=== PATIENT | male | born 1945 | race Two or more races ===

== ENCOUNTER 2017-04-13 11:52 | Emergency (ER) | payer MEDICARE ==
--- NOTE | 2017-04-13 12:32 | ED ---
Recheck HPI - General Chief Complaint: Recheck/Abnormal Lab/Rx Stated Complaint: Flu, hypertensive Time Seen by Provider: 04/13/17 12:22 Source: patient, RN notes reviewed Mode of arrival: ambulatory Limitations: no limitations - History of Present Illness Initial Comments: This is a 71-year-old male who presents with complaints of not feeling well for the past week she's had elevated blood pressure he is been feeling weak and shaky he sees Dr. yanez contact with him on several occasions for blood pressure med changes. His blood pressure is urinating around 190/93 ROM is much lower he also was on by systolic which was stopped. Yesterday due to a low heart rate up in the 40s. They complain some chills feeling cold feeling hoarse he was recently exposed to the flu from a granddaughter. He has had rhinorrhea slight cough. MD Complaint: other - Related Data Home Medications Medication Instructions Recorded Confirmed Cyclobenzaprine [Flexeril] 5 mg PO DAILY PRN 04/13/17 04/13/17 Furosemide [Lasix] 20 mg PO DAILY 04/13/17 04/13/17 Gemfibrozil [Lopid] 600 mg PO AC-BRKFST 04/13/17 04/13/17 Losartan Potassium 100 mg PO DAILY 04/13/17 04/13/17 Simvastatin [Zocor] 40 mg PO HS 04/13/17 04/13/17 Tamsulosin HCl [Flomax] 0.4 mg PO DAILY 04/13/17 04/13/17 amLODIPine [Norvasc] 5 mg PO BID 04/13/17 04/13/17 hydrALAZINE HCL [Apresoline] 50 mg PO TID 04/13/17 04/13/17 Previous Rx's Medication Instructions Recorded Azithromycin [Zithromax Z-pack] 250 mg PO DIRECTED #6 tab 04/13/17 Allergies Allergy/AdvReac Type Severity Reaction Status Date / Time No Known Allergies Allergy Verified 04/13/17 12:45 Review of Systems ROS Statement: Those systems with pertinent positive or pertinent negative responses have been documented in the HPI. ROS Other: All systems not noted in ROS Statement are negative. Past Medical History Past Medical History: Coronary Artery Disease (CAD), Hyperlipidemia, Hypertension History of Any Multi-Drug Resistant Organisms: None Reported Past Surgical History: Orthopedic Surgery Additional Past Surgical History / Comment(s): Left knee replacement Past Psychological History: No Psychological Hx Reported Smoking Status: Never smoker Past Alcohol Use History: Occasional Past Drug Use History: None Reported General Exam - General Exam Comments Initial Comments: This is a well-developed well-nourished awake alert oriented times 3 male Limitations: no limitations General appearance: alert, in no apparent distress Head exam: Present: atraumatic, normocephalic, normal inspection Eye exam: Present: normal appearance, PERRL, EOMI. Absent: scleral icterus, conjunctival injection, periorbital swelling ENT exam: Present: normal exam, mucous membranes moist Neck exam: Present: normal inspection. Absent: tenderness, meningismus, lymphadenopathy Respiratory exam: Present: normal lung sounds bilaterally. Absent: respiratory distress, wheezes, rales, rhonchi, stridor Cardiovascular Exam: Present: regular rate, normal rhythm, normal heart sounds. Absent: systolic murmur, diastolic murmur, rubs, gallop, clicks GI/Abdominal exam: Present: soft, normal bowel sounds. Absent: distended, tenderness, guarding, rebound, rigid Extremities exam: Present: normal inspection, full ROM, normal capillary refill. Absent: tenderness, pedal edema, joint swelling, calf tenderness Back exam: Present: normal inspection Neurological exam: Present: alert, oriented X3, CN II-XII intact Psychiatric exam: Present: normal affect, normal mood Skin exam: Present: warm, dry, intact, normal color. Absent: rash Course Vital Signs 04/13/17 04/13/17 04/13/17 12:05 13:30 14:30 Temperature 97.0 F L Pulse Rate 71 58 L 56 L Respiratory 20 16 18 Rate Blood Pressure 130/102 188/90 181/93 O2 Sat by Pulse 97 100 96 Oximetry Medical Decision Making - Medical Decision Making Patient's blood pressure is improved I did discuss the findings with him the patient does demonstrate evidence of an infectious process with an elevated white count he will be placed on Zithromax Z-Garrett is a palpable his doctor return when necessary - Lab Data Result diagrams: 04/13/17 12:39 04/13/17 12:39 Lab Results 04/13/17 04/13/17 04/13/17 Range/Units 12:39 12:39 12:39 WBC 11.2 H (3.8-10.6) k/uL RBC 5.21 (4.30-5.90) m/uL Hgb 16.7 (13.0-17.5) gm/dL Hct 47.7 (39.0-53.0) % MCV 91.6 (80.0-100.0) fL MCH 32.1 (25.0-35.0) pg MCHC 35.0 (31.0-37.0) g/dL RDW 13.2 (11.5-15.5) % Plt Count 280 (150-450) k/uL Neutrophils % 73 % Lymphocytes % 17 % Monocytes % 5 % Eosinophils % 2 % Basophils % 1 % Neutrophils # 8.1 H (1.3-7.7) k/uL Lymphocytes # 2.0 (1.0-4.8) k/uL Monocytes # 0.6 (0-1.0) k/uL Eosinophils # 0.3 (0-0.7) k/uL Basophils # 0.1 (0-0.2) k/uL Sodium 143 (137-145) mmol/L Potassium 3.8 (3.5-5.1) mmol/L Chloride 103 (98-107) mmol/L Carbon Dioxide 25 (22-30) mmol/L Anion Gap 15 mmol/L BUN 14 (9-20) mg/dL Creatinine 0.88 (0.66-1.25) mg/dL Est GFR (MDRD) Af Amer >60 (>60 ml/min/1.73 sqM) Est GFR (MDRD) Non-Af >60 (>60 ml/min/1.73 sqM) Glucose 145 H (74-99) mg/dL Calcium 10.1 (8.4-10.2) mg/dL Magnesium 1.8 (1.6-2.3) mg/dL Total Bilirubin 0.8 (0.2-1.3) mg/dL AST 19 (17-59) U/L ALT 28 (21-72) U/L Alkaline Phosphatase 87 (38-126) U/L Total Creatine Kinase 78 (55-170) U/L CK-MB (CK-2) 0.9 (0.0-2.4) ng/mL CK-MB (CK-2) Rel Index 1.2 Total Protein 7.8 (6.3-8.2) g/dL Albumin 4.7 (3.5-5.0) g/dL Influenza Type A RNA (Not Detectd) Influenza Type B (PCR) (Not Detectd) 04/13/17 Range/Units 12:39 WBC (3.8-10.6) k/uL RBC (4.30-5.90) m/uL Hgb (13.0-17.5) gm/dL Hct (39.0-53.0) % MCV (80.0-100.0) fL MCH (25.0-35.0) pg MCHC (31.0-37.0) g/dL RDW (11.5-15.5) % Plt Count (150-450) k/uL Neutrophils % % Lymphocytes % % Monocytes % % Eosinophils % % Basophils % % Neutrophils # (1.3-7.7) k/uL Lymphocytes # (1.0-4.8) k/uL Monocytes # (0-1.0) k/uL Eosinophils # (0-0.7) k/uL Basophils # (0-0.2) k/uL Sodium (137-145) mmol/L Potassium (3.5-5.1) mmol/L Chloride (98-107) mmol/L Carbon Dioxide (22-30) mmol/L Anion Gap mmol/L BUN (9-20) mg/dL Creatinine (0.66-1.25) mg/dL Est GFR (MDRD) Af Amer (>60 ml/min/1.73 sqM) Est GFR (MDRD) Non-Af (>60 ml/min/1.73 sqM) Glucose (74-99) mg/dL Calcium (8.4-10.2) mg/dL Magnesium (1.6-2.3) mg/dL Total Bilirubin (0.2-1.3) mg/dL AST (17-59) U/L ALT (21-72) U/L Alkaline Phosphatase (38-126) U/L Total Creatine Kinase (55-170) U/L CK-MB (CK-2) (0.0-2.4) ng/mL CK-MB (CK-2) Rel Index Total Protein (6.3-8.2) g/dL Albumin (3.5-5.0) g/dL Influenza Type A RNA Not Detected (Not Detectd) Influenza Type B (PCR) Not Detected (Not Detectd) - Radiology Data Radiology results: report reviewed (I did review the imaging and reports no acute findings.), image reviewed Disposition Clinical Impression: Hypertension, Leukocytosis Disposition: HOME SELF-CARE Condition: Good Instructions: Hypertension (ED), Leukocytosis (ED) Additional Instructions: Follow-up with her doctor in 2-3 days. Continue with your current blood pressure medications as directed. Prescriptions: Azithromycin [Zithromax Z-pack] 250 mg PO DIRECTED #6 tab Referrals: Nonstaff,Physician [Primary Care Provider] - 1-2 days
[2017-04-13 12:50] LABS: Basophils # (A) 0.1 k/uL (0-0.2); Basophils % (A) 1 %; Eosinophils # (A) 0.3 k/uL (0-0.7); Eosinophils % (A) 2 %; HCT 47.7 % (39.0-53.0); HGB 16.7 gm/dL (13.0-17.5); Lymphocytes % (A) 17 %; MCH 32.1 pg (25.0-35.0); MCV 91.6 fL (80.0-100.0); Mean Platelet Volume 7.8; Monocytes # (A) 0.6 k/uL (0-1.0); Monocytes % (A) 5 %; Neutrophils # (A) 8.1 k/uL (1.3-7.7); Neutrophils % (A) 73 %; Platelet Count 280 k/uL (150-450); RBC 5.21 m/uL (4.30-5.90); RDW 13.2 % (11.5-15.5); WBC 11.2 k/uL (3.8-10.6)
[2017-04-13 13:03] LABS: ALT 28 U/L (21-72); AST 19 U/L (17-59); Albumin 4.7 g/dL (3.5-5.0); Alkaline Phosphatase 87 U/L (38-126); Anion Gap 15 mmol/L; Blood Urea Nitrogen 14 mg/dL (9-20); Calcium 10.1 mg/dL (8.4-10.2); Carbon Dioxide 25 mmol/L (22-30); Chloride 103 mmol/L (98-107); Glucose 145 mg/dL (74-99); Magnesium 1.8 mg/dL (1.6-2.3); Potassium 3.8 mmol/L (3.5-5.1); Sodium 143 mmol/L (137-145); Total Bilirubin 0.8 mg/dL (0.2-1.3); Total Protein 7.8 g/dL (6.3-8.2)
--- NOTE | 2017-04-13 13:15 | XR ---
EXAMINATION TYPE: XR chest 2V DATE OF EXAM: 04/13/2017 HISTORY: cough. REFERENCE: None. FINDINGS: The lungs are clear. Pleural space are clear. The heart is upper limits of normal in size.. IMPRESSION: BORDERLINE CARDIOMEGALY.
[2017-04-13 13:28] LABS: Creatine Kinase MB 0.9 ng/mL (0.0-2.4)
[2017-04-13] MEDS ORDERED: hydrALAZINE HCL 20 MG/ML 1 ML VIAL IVP STA (14:06)
[2017-04-13 15:26] VITALS: BP 165/81; PULSE 68; RESP 16; TEMP 97.7
== END 2017-04-13 15:26 | disposition home or self-care (01) ==
LOC: EC 11:52
DX: I10 Essential (primary) hypertension (principal); D72.829 Elevated white blood cell count, unspecified; R05 Cough; J34.89 Other specified disorders of nose and nasal sinuses; I25.10 Atherosclerotic heart disease of native coronary artery without angina pectoris; E78.5 Hyperlipidemia, unspecified; Z79.899 Other long term (current) drug therapy
CPT/HCPCS: 99284; 96374; 36415; 93005; 80053; 82550; 82553; 83735; 85025; 87040; 87502; 71046; J0360

== ENCOUNTER 2023-01-15 23:41 | Inpatient (IN) | payer MEDICARE ==
[2023-01-16] MEDS ORDERED: MAG HYDROX/AL HYDROX/SIMETH 30 ML, HYOSCYAMINE ELIXIR 10 ML, LIDOCAINE VISCOUS 2% 10 ML PO STA ×3 (00:18)
[2023-01-16] MEDS ORDERED: FAMOTIDINE 20 MG/2 ML VIAL IV STA (00:18)
[2023-01-16] MEDS ORDERED: KETOROLAC 15 MG/ML 1 ML VIAL IVP STA (00:18)
[2023-01-16] MEDS ORDERED: ONDANSETRON 4 MG/2 ML VIAL IVP STA (00:19)
--- NOTE | 2023-01-16 00:31 | ED ---
General Adult HPI - General Source: patient, EMS, RN notes reviewed Mode of arrival: EMS Limitations: no limitations <Kassidy Helton - Last Filed: 01/16/23 03:41> <Carol Asif - Last Filed: 01/16/23 07:47> - General Chief complaint: Abdominal Pain Stated complaint: Abd Pain, N/V Time Seen by Provider: 01/16/23 00:02 - History of Present Illness Initial comments: 77-year-old male with past medical history significant for left knee arthroplasty presents the emergency department via EMS with chief complaint of epigastric pain. Patient reports Epigastric pain that started approximately 7 PM. It does not radiate anywhere else. He reports that he has had a post operation recovery last 6 days however have an increased epigastric pain last night and today. He has not taken anything for his symptoms. Patient reports that he is on antibiotics and Dr., empty stomach. He denies any known fevers, cough, chest pain, palpitations, shortness of breath. No patient does report that he is taking extra strength Tylenol and MAP AP, estimating approximately 4000mg daily since his procedure (Kassidy Helton) - Related Data Home Medications Medication Instructions Recorded Confirmed Cyclobenzaprine [Flexeril] 5 mg PO DAILY PRN 04/13/17 01/16/23 Furosemide [Lasix] 20 mg PO DAILY 04/13/17 01/16/23 Tamsulosin HCl [Flomax] 0.4 mg PO HS 04/13/17 01/16/23 gemfibroziL [Lopid] 600 mg PO AC-BRKFST 04/13/17 01/16/23 hydrALAZINE HCL [Apresoline] 50 mg PO TID 04/13/17 01/16/23 Acetaminophen Tab [Tylenol Tab] 1,000 mg PO Q8H PRN 01/16/23 01/16/23 Aspirin EC [Ecotrin Low Dose] 81 mg PO BID 01/16/23 01/16/23 Doxycycline [Vibramycin] 50 mg PO BID PRN 01/16/23 01/16/23 Losartan [Cozaar] 50 mg PO DAILY 01/16/23 01/16/23 Omeprazole [PriLOSEC] 40 mg PO DAILY 01/16/23 01/16/23 Sildenafil Citrate [Viagra] 50 mg PO DAILY PRN 01/16/23 01/16/23 amLODIPine [Norvasc] 10 mg PO DAILY 01/16/23 01/16/23 metroNIDAZOLE 1% GEL [Metrogel 1%] 1 applic TOPICAL DAILY 01/16/23 01/16/23 Allergies Allergy/AdvReac Type Severity Reaction Status Date / Time No Known Allergies Allergy Verified 01/16/23 07:37 Review of Systems ROS Other: All systems not noted in ROS Statement are negative. <Kassidy Helton - Last Filed: 01/16/23 03:41> ROS Other: All systems not noted in ROS Statement are negative. <Carol Asif - Last Filed: 01/16/23 07:47> ROS Statement: Those systems with pertinent positive or pertinent negative responses have been documented in the HPI. Past Medical History Past Medical History: Coronary Artery Disease (CAD), Hyperlipidemia, Hypertension History of Any Multi-Drug Resistant Organisms: None Reported Past Surgical History: Orthopedic Surgery Additional Past Surgical History / Comment(s): Left knee replacement Past Psychological History: No Psychological Hx Reported Past Alcohol Use History: Occasional Past Drug Use History: None Reported <Kassidy Helton - Last Filed: 01/16/23 03:41> General Exam Limitations: no limitations <Kassidy Helton - Last Filed: 01/16/23 03:41> - General Exam Comments Initial Comments: General: Alert, in no acute distress, is obese Head: atraumatic normocephalic. Eyes PERRL, EOMI intact, mucous membranes moist Respiratory: Lungs clear to auscultation bilaterally Cardiovascular: Heart rate regular rate and rhythm Abdominal: Soft without guarding or rebound, mild epigastric tenderness Extremities: Normal inspection with full range of motion and normal capillary refill Neuroogic: alert and oriented 3, CN II-XII intact, able to ambulate with steady gait Skin: warm dry and intact with normal color (Kassidy Helton) Course <Kassidy Helton - Last Filed: 01/16/23 03:41> Vital Signs 01/15/23 01/16/23 01/16/23 23:47 01:30 03:03 Temperature 97.0 F L Pulse Rate 71 87 90 Respiratory 20 18 18 Rate Blood Pressure 187/84 166/91 171/90 O2 Sat by Pulse 97 93 L 93 L Oximetry 11/15/23 04:48 Temperature Pulse Rate 90 Respiratory 18 Rate Blood Pressure 184/94 O2 Sat by Pulse 96 Oximetry - Reevaluation(s) Reevaluation #1: 01/16/23 01:11 patient reevaluated and updated on laboratory results. Agreeable with the plan for additional CT imaging. (Kassidy Helton) Reevaluation #2: 01/16/23 03:45 patient reevaluated. (Kassidy Helton) Reevaluation #3: 01/16/23 03:42 Case is signed out to Dr. Asif pending CT results (Kassidy Helton) EKG Findings - EKG Comments: EKG Findings:: I interpreted the following: EKG performed at 23:57 rate 70 bpm normal sinus rhythm OR interval 180, QRS scientologist 119, QT/QTc 420/441 <Kassidy Helton - Last Filed: 01/16/23 03:41> Medical Decision Making - Lab Data Result diagrams: 01/16/23 00:20 01/16/23 00:20 <Kassidy Helton - Last Filed: 01/16/23 03:41> - Lab Data Result diagrams: 01/16/23 00:20 01/16/23 00:20 <Carol Asif - Last Filed: 01/16/23 07:47> - Medical Decision Making Was pt. sent in by a medical professional or institution (, PA, DRUG CLERK, urgent care, hospital, or prison...) When possible be specific @ -[No] Did you speak to anyone other than the patient for history (EMS, parent, family, police, friend...)? What history was obtained from this source @ -EMS, Did you review nursing and triage notes (agree or disagree)? Why? @ -[I reviewed and agree with nursing and triage notes] Were old charts reviewed (outside hosp., previous admission, EMS record, old EKG, old radiological studies, urgent care reports/EKG's, prison records)? Report findings @ -[No old charts were reviewed] Differential Diagnosis (chest pain, altered mental status, abdominal pain women, abdominal pain men, vaginal bleeding, weakness, fever, dyspnea, syncope, headache, dizziness, GI bleed, back pain, seizure, CVA, palpatations, mental health, musculoskeletal)? @ -[not applicable] EKG interpreted by me (3pts min.). @ -[As above] X-rays interpreted by me (1pt min.). @ -Chest x-ray does not reveal any intra pleural process or focal consolidation CT interpreted by me (1pt min.). @ -[None done] U/S interpreted by me (1pt. min.). @ -[None done] What testing was considered but not performed or refused? (CT, X-rays, U/S, labs)? Why? @ -[None] What meds were considered but not given or refused? Why? @ -[None] Did you discuss the management of the patient with other professionals (duane preciado i.e. , PA, DRUG CLERK, lab, RT, psych nurse, manager social responsibility, trading floor operator, teacher, geological technical officer, family independence case manager)? Give summary @ -[No] Was smoking cessation discussed for >3mins.? @ -[No] Was critical care preformed (if so, how long)? @ -[No] Were there social determinants of health that impacted care today? How? (Homelessness, low income, unemployed, alcoholism, drug addiction, transp ortation, low edu. Level, literacy, decrease access to med. care, intermediate, rehab)? @ -[No] Was there de-escalation of care discussed even if they declined (Discuss DNR or withdrawal of care, Hospice)? DNR status @ -[No] What co-morbidities impacted this encounter? (DM, HTN, Smoking, COPD, CAD, Cancer, CVA, ARF, Chemo, Hep., AIDS, mental health diagnosis, sleep apnea, morbid obesity)? @ -[None] Was patient admitted / discharged? Hospital course, mention meds given and route, prescriptions, significant lab abnormalities, going to OR and other pertinent info. @ Disposition pending. This is a 77-year-old male who presents to the emergency department with epigastric pain. Patient had a thorough history and physical exam performed while in the ED. Physical exam is essentially unremarkable. Heart rate regular rate and rhythm, auscultation bilaterally abdomen soft and nontender. Patient had laboratory studies which revealed: WBCs 10.8, hemoglobin 13.7, platelets 328 quality assurance representative studies unremarkable sodium 136, potassium 2.6 BUN 15, creatinine 0.91 total bilirubin 2.9, AST 285, ALP 240 initial troponin negative. Chest x-ray negative. Patient was given a GI cocktail, Toradol, Pepcid, Zofran, 1 L IV fluids for symptomatic improvement. Patient will be signed out to Dr. Asif pending acetaminophen value and CT results. (Kassidy Helton) Was patient admitted / discharged? Hospital course, mention meds given and route, prescriptions, significant lab abnormalities, going to OR and other pertinent info. @ -Patient signed out to me from Kassidy. CT results demonstrate cho lelithiasis with 2 stones within the common bile duct which is dilated. Spoke with Dr. Moreland who felt that the patient could be admitted to our facility. Recommended medicine admission with him and Dr. Ortiz to consult. I spoke with the patient about this. He is pain-free at this time and agreeable to admission. I spoke with Dr. palomares for the admission Undiagnosed new problem with uncertain prognosis? @ -Yes Drug Therapy requiring intensive monitoring for toxicity (Heparin, Nitro, Insulin, Cardizem)? @ -No Were any procedures done? @ -No Diagnosis/symptom? @ -Acute epigastric abdominal pain, acute cholelithiasis, acute choledocholit hiasis Acute, or Chronic, or Acute on Chronic? @ -Acute Uncomplicated (without systemic symptoms) or Complicated (systemic symptoms)? @ -Complicated Side effects of treatment? @ -No Exacerbation, Progression, or Severe Exacerbation? @ -No Poses a threat to life or bodily function? How? (Chest pain, USA, ME, pneumonia, PE, COPD, DKA, ARF, appy, cholecystitis, CVA, Diverticulitis, Homicidal, Suicidal, threat to staff... and all critical care pts) @ -No (Carol Asif) - Lab Data Lab Results 01/16/23 01/16/23 01/16/23 Range/Units 00:20 00:20 00:20 WBC 10.8 H (3.8-10.6) k/uL RBC 4.18 L (4.30-5.90) m/uL Hgb 13.7 (13.0-17.5) gm/dL Hct 39.8 (39.0-53.0) % MCV 95.1 (80.0-100.0) fL MCH 32.8 (25.0-35.0) pg MCHC 34.5 (31.0-37.0) g/dL RDW 12.7 (11.5-15.5) % Plt Count 328 (150-450) k/uL MPV 8.7 Neutrophils % 81 % Lymphocytes % 10 % Monocytes % 6 % Eosinophils % 2 % Basophils % 0 % Neutrophils # 8.8 H (1.3-7.7) k/uL Lymphocytes # 1.1 (1.0-4.8) k/uL Monocytes # 0.6 (0-1.0) k/uL Eosinophils # 0.2 (0-0.7) k/uL Basophils # 0.0 (0-0.2) k/uL PT 10.1 (10.0-12.5) sec INR 0.9 (<1.2) APTT 24.2 (22.0-30.0) sec Sodium 136 L (137-145) mmol/L Potassium 3.6 (3.5-5.1) mmol/L Chloride 102 (98-107) mmol/L Carbon Dioxide 21 L (22-30) mmol/L Anion Gap 13 mmol/L BUN 15 (9-20) mg/dL Creatinine 0.91 (0.66-1.25) mg/dL Est GFR (CKD-EPI)AfAm >90 (>60 ml/min/1.73 sqM) Est GFR (CKD-EPI)NonAf 82 (>60 ml/min/1.73 sqM) Glucose 155 H (74-99) mg/dL Plasma Lactic Acid Bart (0.7-2.0) mmol/L Calcium 9.0 (8.4-10.2) mg/dL Total Bilirubin 2.9 H (0.2-1.3) mg/dL AST 285 H (17-59) U/L ALT 240 H (4-49) U/L Alkaline Phosphatase 301 H (38-126) U/L Troponin I (0.000-0.034) ng/mL Total Protein 6.5 (6.3-8.2) g/dL Albumin 3.7 (3.5-5.0) g/dL Acetaminophen <10.0 ug/mL Influenza Type A (PCR) (Not Detectd) Influenza Type B (PCR) (Not Detectd) RSV (PCR) (Not Detectd) SARS-CoV-2 (PCR) (Not Detectd) 01/16/23 01/16/23 01/16/23 Range/Units 00:20 00:20 00:20 WBC (3.8-10.6) k/uL RBC (4.30-5.90) m/uL Hgb (13.0-17.5) gm/dL Hct (39.0-53.0) % MCV (80.0-100.0) fL MCH (25.0-35.0) pg MCHC (31.0-37.0) g/dL RDW (11.5-15.5) % Plt Count (150-450) k/uL MPV Neutrophils % % Lymphocytes % % Monocytes % % Eosinophils % % Basophils % % Neutrophils # (1.3-7.7) k/uL Lymphocytes # (1.0-4.8) k/uL Monocytes # (0-1.0) k/uL Eosinophils # (0-0.7) k/uL Basophils # (0-0.2) k/uL PT (10.0-12.5) sec INR (<1.2) APTT (22.0-30.0) sec Sodium (137-145) mmol/L Potassium (3.5-5.1) mmol/L Chloride (98-107) mmol/L Carbon Dioxide (22-30) mmol/L Anion Gap mmol/L BUN (9-20) mg/dL Creatinine (0.66-1.25) mg/dL Est GFR (CKD-EPI)AfAm (>60 ml/min/1.73 sqM) Est GFR (CKD-EPI)NonAf (>60 ml/min/1.73 sqM) Glucose (74-99) mg/dL Plasma Lactic Acid Bart 1.7 (0.7-2.0) mmol/L Calcium (8.4-10.2) mg/dL Total Bilirubin (0.2-1.3) mg/dL AST (17-59) U/L ALT (4-49) U/L Alkaline Phosphatase (38-126) U/L Troponin I <0.012 (0.000-0.034) ng/mL Total Protein (6.3-8.2) g/dL Albumin (3.5-5.0) g/dL Acetaminophen ug/mL Influenza Type A (PCR) Not Detected (Not Detectd) Influenza Type B (PCR) Not Detected (Not Detectd) RSV (PCR) Not Detected (Not Detectd) SARS-CoV-2 (PCR) Not Detected (Not Detectd) Disposition <Kassidy Helton - Last Filed: 01/16/23 03:41> Is patient prescribed a controlled substance at d/c from ED?: No Time of Disposition: 05:37 Decision to Admit Reason: Admit from EC Decision Date: 01/16/23 Decision Time: 05:37 <Carol Asif - Last Filed: 01/16/23 07:47> Clinical Impression: Epigastric pain, Transaminitis, Choledocholithiasis, Cholelithiasis Disposition: ADMITTED IP TO THIS HOSP Condition: Serious
[2023-01-16 00:39] LABS: Basophils % (A) 0 %; Eosinophils # (A) 0.2 k/uL (0-0.7); Eosinophils % (A) 2 %; HCT 39.8 % (39.0-53.0); HGB 13.7 gm/dL (13.0-17.5); Lymphocytes # (A) 1.1 k/uL (1.0-4.8); Lymphocytes % (A) 10 %; MCH 32.8 pg (25.0-35.0); MCHC 34.5 g/dL (31.0-37.0); MCV 95.1 fL (80.0-100.0); Mean Platelet Volume 8.7; Monocytes # (A) 0.6 k/uL (0-1.0); Monocytes % (A) 6 %; Neutrophils # (A) 8.8 k/uL (1.3-7.7); Neutrophils % (A) 81 %; Platelet Count 328 k/uL (150-450); RBC 4.18 m/uL (4.30-5.90); RDW 12.7 % (11.5-15.5); WBC 10.8 k/uL (3.8-10.6)
[2023-01-16 00:43] LABS: INR 0.9 (<1.2); Partial Thromboplastin Time 24.2 sec (22.0-30.0); Prothrombin Time 10.1 sec (10.0-12.5)
[2023-01-16 00:46] LABS: ALT 240 U/L (4-49); AST 285 U/L (17-59); African American GFR (CKD) >90 (>60 ml/min/1.73 sqM); Albumin 3.7 g/dL (3.5-5.0); Alkaline Phosphatase 301 U/L (38-126); Anion Gap 13 mmol/L; Blood Urea Nitrogen 15 mg/dL (9-20); Carbon Dioxide 21 mmol/L (22-30); Chloride 102 mmol/L (98-107); Glucose 155 mg/dL (74-99); Non-African American GFR(CKD) 82 (>60 ml/min/1.73 sqM); Potassium 3.6 mmol/L (3.5-5.1); Sodium 136 mmol/L (137-145); Total Bilirubin 2.9 mg/dL (0.2-1.3); Total Protein 6.5 g/dL (6.3-8.2)
--- NOTE | 2023-01-16 02:30 | XR ---
EXAM: XR Chest, 2 Views CLINICAL HISTORY: epigastric pain TECHNIQUE: Frontal and lateral views of the chest. COMPARISON: April 13, 2017 FINDINGS: Lungs: Unremarkable. No infiltration, atelectasis or mass density. Pleural space: Unremarkable. No pneumothorax. No pleural fluid. Heart: Mild cardiomegaly. Mediastinum: Unremarkable. Bones/joints: Unremarkable. No acute abnormalities. IMPRESSION: No acute findings in the chest.
--- NOTE | 2023-01-16 04:21 | CT ---
EXAM: CT Abdomen and Pelvis With Intravenous Contrast CLINICAL HISTORY: abdominal pain TECHNIQUE: Axial computed tomography images of the abdomen and pelvis with intravenous contrast. CTDI is 39.7 mGy and DLP is 1996.2 mGy-cm. This CT exam was performed using one or more of the following dose reduction techniques: automated exposure control, adjustment of the mA and/or kV according to patient size, and/or use of iterative reconstruction technique. COMPARISON: No relevant prior studies available. FINDINGS: Lung bases: Mild infiltration in the right lower lobe. Mediastinum: Small hiatus hernia. ABDOMEN: Liver: Unremarkable. No mass. No intrahepatic bile duct dilatation. Gallbladder and bile ducts: Multiple gallstones. There is no gallbladder wall thickening or surrounding edema or fluid. There appear to be 2 small stones in the distal common bile duct. The common bile duct is upper limits of normal for age at approximately 7-8 mm. Pancreas: Unremarkable. No mass. No ductal dilation. Spleen: Unremarkable. No splenomegaly. Adrenals: Unremarkable. No mass. Kidneys and ureters: Unremarkable. No solid mass. No hydronephrosis. Stomach and bowel: Diverticulosis without diverticulitis. No obstruction. PELVIS: Appendix: No findings to suggest acute appendicitis. Bladder: Unremarkable. No mass. Reproductive: Unremarkable as visualized. ABDOMEN and PELVIS: Intraperitoneal space: Unremarkable. No free air. No significant fluid collection. Bones/joints: No acute fracture. No dislocation. Soft tissues: Unremarkable. Vasculature: Unremarkable. No abdominal aortic aneurysm. Lymph nodes: Unremarkable. No enlarged lymph nodes. IMPRESSION: Gallstones. 2 small stones in the distal common bile duct. Mild right lower lobe infiltrates.
[2023-01-16 04:58] LABS: Acetaminophen <10.0 ug/mL
[2023-01-16] MEDS ORDERED: NALOXONE 0.4 MG/ML 1 ML VIAL IV PRN (05:37)
[2023-01-16] MEDS: SODIUM CHLORIDE 0.9% 1,000 ML IV SCH ×2 (08:34→19:55)
[2023-01-16] MEDS ORDERED: ACETAMINOPHEN TAB 500 MG TAB PO PRN (10:15)
[2023-01-16] MEDS ORDERED: hydrALAZINE HCL 20 MG/ML 1 ML VIAL IVP PRN (10:17)
[2023-01-16] MEDS: amLODIPine 10 MG TAB PO SCH (12:17)
[2023-01-16] MEDS: LOSARTAN 50 MG TAB PO SCH (12:17)
[2023-01-16] MEDS: hydrALAZINE HCL 50 MG TAB PO SCH ×3 (12:17→20:02)
--- NOTE | 2023-01-16 12:27 | P.CONS ---
History of Present Illness - Reason for Consult Consult date: 01/16/23 Acute choledocholithiasis Requesting physician: Carol Asif - Chief Complaint Abdominal pain - History of Present Illness This is a pleasant 77-year-old male who presented to the emergency department yesterday evening with complaints of right upper quadrant and epigastric pain. States pain started 2 days ago however it only lasted about 2 hours that evening and then again yesterday he ate dinner and then following that around 7 PM the pain returned and was sharp and continued causing nausea and vomiting. Patient's past medical history includes recent left knee surgery done 5-6 days ago, coronary artery disease, hyperlipidemia and hypertension. This morning he states abdominal pain has improved. He states he has no pain and no further nausea or vomiting. On admission he was noted to have elevated liver enzymes and had a CT of the abdomen and pelvis concerning for multiple gallstones as well as CBD stone. Gastroenterology was consulted for choledochollithiasis. Again currently he denies any abdominal pain, nausea or vomiting. He denies shortness of breath or chest pain, no body aches, fevers or chills. Labs WBC 10.8 hemoglobin 13.7 hematocrit 39 platelet count 328,000 INR 0.9 sodium 136 potassium 3.6 BUN 15 creatinine 0.9 glucose 155 total bilirubin 2.9 AST 285 AST 240 alkaline phosphatase 301 Review of Systems REVIEW OF SYSTEMS: CARDIOPULMONARY: No chest pain or shortness of breath. Gastrointestinal: Reported epigastric and right upper quadrant pain associated with nausea and vomiting yesterday now resolved. No hematemesis, coffee-ground emesis. No rectal bleeding, or melena. GENITOURINARY: No dysuria or hematuria. MUSCULOSKELETAL: Reports left knee replacement 5 days ago, limited mobility. SKIN: No rashes. No jaundice. ENDOCRINE: No chills, fevers. No excessive weight gain or loss. No polydipsia or polyuria. PSYCHIATRIC: Unremarkable. NEUROLOGY: No change in mental status. Denies dizziness, headache. ENT: Vision unremarkable. CONSTITUTIONAL: No recent weight loss. No fever, chills, night sweats. Past Medical History Past Medical History: Coronary Artery Disease (CAD), Hyperlipidemia, Hypertension History of Any Multi-Drug Resistant Organisms: None Reported Past Surgical History: Orthopedic Surgery Additional Past Surgical History / Comment(s): Left knee replacement Past Psychological History: No Psychological Hx Reported Past Alcohol Use History: Occasional Past Drug Use History: None Reported Medications and Allergies Home Medications Medication Instructions Recorded Confirmed Type Cyclobenzaprine [Flexeril] 5 mg PO DAILY PRN 04/13/17 01/16/23 History Furosemide [Lasix] 20 mg PO DAILY 04/13/17 01/16/23 History Tamsulosin HCl [Flomax] 0.4 mg PO HS 04/13/17 01/16/23 History gemfibroziL [Lopid] 600 mg PO AC-BRKFST 04/13/17 01/16/23 History hydrALAZINE HCL [Apresoline] 50 mg PO TID 04/13/17 01/16/23 History Acetaminophen Tab [Tylenol Tab] 1,000 mg PO Q8H PRN 01/16/23 01/16/23 History Aspirin EC [Ecotrin Low Dose] 81 mg PO BID 01/16/23 01/16/23 History Doxycycline [Vibramycin] 50 mg PO BID PRN 01/16/23 01/16/23 History Losartan [Cozaar] 50 mg PO DAILY 01/16/23 01/16/23 History Omeprazole [PriLOSEC] 40 mg PO DAILY 01/16/23 01/16/23 History Sildenafil Citrate [Viagra] 50 mg PO DAILY PRN 01/16/23 01/16/23 History amLODIPine [Norvasc] 10 mg PO DAILY 01/16/23 01/16/23 History metroNIDAZOLE 1% GEL [Metrogel 1%] 1 applic TOPICAL DAILY 01/16/23 01/16/23 History Allergies Allergy/AdvReac Type Severity Reaction Status Date / Time No Known Allergies Allergy Verified 01/16/23 07:37 Physical Exam Vitals: Vital Signs Temp Pulse Resp BP Pulse Ox 01/16/23 04:48 90 18 184/94 96 01/16/23 03:03 90 18 171/90 93 L 01/16/23 01:30 87 18 166/91 93 L 01/15/23 23:47 97.0 F L 71 20 187/84 97 Intake and Output 01/15/23 01/16/23 01/16/23 22:59 06:59 14:59 Other: Weight 117.934 kg General appearance: The patient is alert, oriented, appears in no acute distress. HET: Head is normocephalic and atraumatic. Conjunctiva pink. Sclera anicteric. Neck: Supple without lymphadenopathy. Trachea midline. Heart: Regular. Lungs: Equal expansion, normal respiratory effort. Abdomen: Soft, nontender, nondistended with bowel sounds. No guarding or rigidity. Skin: No rashes. No jaundice. Extremities: Normal skin color and turgor. No pedal edema. Neurological: No focal deficits. Alert and oriented x3. Results CBC & Chem 7: 01/16/23 00:20 01/16/23 00:20 Labs: Abnormal Lab Results - Last 24 Hours (Table) 01/16/23 01/16/23 Range/Units 00:20 00:20 WBC 10.8 H (3.8-10.6) k/uL RBC 4.18 L (4.30-5.90) m/uL Neutrophils # 8.8 H (1.3-7.7) k/uL Sodium 136 L (137-145) mmol/L Carbon Dioxide 21 L (22-30) mmol/L Glucose 155 H (74-99) mg/dL Total Bilirubin 2.9 H (0.2-1.3) mg/dL AST 285 H (17-59) U/L ALT 240 H (4-49) U/L Alkaline Phosphatase 301 H (38-126) U/L Comments: CT abdomen and pelvis with IV contrast reports gallstones. 2 small stones in the distal common bile duct. Mild right lower lobe infiltrates. Assessment and Plan (1) Choledocholithiasis Narrative/Plan: This 77-year-old male presenting with right upper quadrant and epigastric pain associated with nausea and vomiting for 2 days duration had elevated LFTs consistent with cholestatic pattern as well as CT of the abdomen and pelvis reporting multiple gallstones as well as concern for 2 small stones in the distal common bile duct. Patient had recent knee surgery denies any anticoagulation however does take daily low-dose aspirin. We'll hold aspirin and plan for ERCP tomorrow. Procedure discussed with patient including risks and benefits and he has agreeable to proceed. Current Visit: Yes Status: Acute Code(s): K80.50 - CALCULUS OF BILE DUCT W/O CHOLANGITIS OR CHOLECYST W/O OBST SNOMED Code(s): 943008444 (2) Cholelithiasis Narrative/Plan: General surgery following Current Visit: Yes Status: Acute Code(s): K80.20 - CALCULUS OF GALLBLADDER W/O CHOLECYSTITIS W/O OBSTRUCTION SNOMED Code(s): 626084784 (3) Transaminitis Current Visit: Yes Status: Acute Code(s): R74.01 - ELEVATION OF LEVELS OF LIVER TRANSAMINASE LEVELS SNOMED Code(s): 573769218 Plan: 1. Continue symptomatic supportive care 2. Pain medication as needed 3. Antiemetics as needed 4. Protonix 40 mg daily for GI prophylaxis 5. Plan for ERCP tomorrow 6. Clear liquid diet, nothing by mouth after midnight 7. Indomethacin one hour prior to ERCP 8. Levaquin one hour prior to ERCP 9. Continue with recommendations from general surgery Thank you for this consultation, we will continue to follow. Dr. Paty Ortiz I agree with the dictator's note, documented as a scribe by Maria Isabel Rajput.
[2023-01-16] MEDS ORDERED: CYCLOBENZAPRINE 5 MG TAB PO PRN (13:17)
[2023-01-16] MEDS: PANTOPRAZOLE 40 MG/10 ML VIAL IVP SCH ×2 (14:24→20:02)
[2023-01-16] MEDS: FUROSEMIDE 20 MG TAB PO SCH (14:24)
[2023-01-16] MEDS: HEPARIN SODIUM,PORCINE 5,000 UNIT/ML 1 ML VIAL SQ SCH ×2 (14:25→20:02)
--- NOTE | 2023-01-16 14:52 | P.GSCN ---
History of Present Illness Consult date: 01/16/23 History of present illness: CHIEF COMPLAINT: Abdominal pain HISTORY OF PRESENT ILLNESS: This is a 77-year-old male who presented to the hospital with complaints of epigastric and right upper quadrant abdominal pain that started yesterday evening. Patient reports pain started after eating a roast beef for dinner. He denies any nausea or vomiting. Denies any fever c hills or sweats. Denies any prior abdominal surgeries. Denies being on any blood thinners. Computed tomography scan abdomen had shown gallstones and 2 small stones in the distal common bile duct. Patient does have elevated liver enzymes and total bilirubin. Patient seen by GI service and is scheduled for ERCP tomorrow. PAST MEDICAL HISTORY: Coronary Artery Disease (CAD), Hyperlipidemia, Hypertension PAST SURGICAL HISTORY: Left knee replacement MEDICATIONS: See below ALLERGIES: See below SOCIAL HISTORY: No illicit drug use. REVIEW OF SYSTEMS: CONSTITUTIONAL: Denies fever or chills. HEENT: Denies blurred vision, vision changes, or eye pain. Denies hemoptysis CARDIOVASCULAR: Denies chest pain or pressure. RESPIRATORY: No shortness of breath. GASTROINTESTINAL: See HPI for pertinent findings HEMATOLOGIC: Denies bleeding disorders. GENITOURINARY: Denies any blood in urine or increased urinary frequency. SKIN: Denies pruitis. Denies rash. PHYSICAL EXAM: VITAL SIGNS: Reviewed GENERAL: Well-developed in no acute distress. HEENT: No sclera icterus. Extraocular movements grossly intact. Moist buccal mucosa. Head is atraumatic, normocephalic. No nasal drainage. ABDOMEN: Soft. Nondistended. Right upper quadrant tenderness with palpation NEUROLOGIC: Alert and oriented. Cranial nerves II through XII grossly intact. LABORATORY DATA: WBC 10.8 Hgb 13.7 platelets 328 Sodium 136 potassium 3.6 creatinine 0.91 Total bilirubin 2.9 AST 285 ALT 240 alk phos 301 Tylenol Less than 10 Influenza, RSV and Covid not detected IMAGING: Computed tomography scan abdomen and pelvis reports gallstones. 2 small stones in the distal common bile duct. Mild right lower lobe infiltrates. ASSESSMENT: 1. Choledocholithiasis 2. Right upper quadrant abdominal pain PLAN: -Patient scheduled for ERCP with GI service tomorrow -We'll plan for laparoscopic cholecystectomy on Saturday with Dr. Moreland -Start clear liquid diet -Continue IV fluids -Continue pain management -Continue antiemetics Physician Spinning Lathe Operator Hydraulic note has been reviewed by physician. Signing provider agrees with the documented findings, assessment, and plan of care. Past Medical History Past Medical History: Coronary Artery Disease (CAD), Hyperlipidemia, Hypertensi on History of Any Multi-Drug Resistant Organisms: None Reported Past Surgical History: Orthopedic Surgery Additional Past Surgical History / Comment(s): Left knee replacement Past Psychological History: No Psychological Hx Reported Past Alcohol Use History: Occasional Past Drug Use History: None Reported Medications and Allergies Home Medications Medication Instructions Recorded Confirmed Type Cyclobenzaprine [Flexeril] 5 mg PO DAILY PRN 04/13/17 01/16/23 History Furosemide [Lasix] 20 mg PO DAILY 04/13/17 01/16/23 History Tamsulosin HCl [Flomax] 0.4 mg PO HS 04/13/17 01/16/23 History gemfibroziL [Lopid] 600 mg PO AC-BRKFST 04/13/17 01/16/23 History hydrALAZINE HCL [Apresoline] 50 mg PO TID 04/13/17 01/16/23 History Acetaminophen Tab [Tylenol Tab] 1,000 mg PO Q8H PRN 01/16/23 01/16/23 History Aspirin EC [Ecotrin Low Dose] 81 mg PO BID 01/16/23 01/16/23 History Doxycycline [Vibramycin] 50 mg PO BID PRN 01/16/23 01/16/23 History Losartan [Cozaar] 50 mg PO DAILY 01/16/23 01/16/23 History Omeprazole [PriLOSEC] 40 mg PO DAILY 01/16/23 01/16/23 History Sildenafil Citrate [Viagra] 50 mg PO DAILY PRN 01/16/23 01/16/23 History amLODIPine [Norvasc] 10 mg PO DAILY 01/16/23 01/16/23 History cefaDROXiL [Duricef] 500 mg PO Q12HR 01/16/23 01/16/23 History metroNIDAZOLE 1% GEL [Metrogel 1%] 1 applic TOPICAL DAILY 01/16/23 01/16/23 History Allergies Allergy/AdvReac Type Severity Reaction Status Date / Time No Known Allergies Allergy Verified 01/16/23 07:37 Surgical - Exam Vital Signs Temp Pulse Resp BP Pulse Ox 97.0 F L 71 20 187/84 97 01/15/23:47 01/15/23 23:47 01/15/23 23:47 01/15/23 23:47 01/15/23 23:47 Results - Labs 01/16/23 00:20 01/16/23 00:20 Abnormal Lab Results - Last 24 Hours (Table) 01/16/23 01/16/23 Range/Units 00:20 00:20 WBC 10.8 H (3.8-10.6) k/uL RBC 4.18 L (4.30-5.90) m/uL Neutrophils # 8.8 H (1.3-7.7) k/uL Sodium 136 L (137-145) mmol/L Carbon Dioxide 21 L (22-30) mmol/L Glucose 155 H (74-99) mg/dL Total Bilirubin 2.9 H (0.2-1.3) mg/dL AST 285 H (17-59) U/L ALT 240 H (4-49) U/L Alkaline Phosphatase 301 H (38-126) U/L Diabetes panel 01/16/23 Range/Units 00:20 Sodium 136 L (137-145) mmol/L Potassium 3.6 (3.5-5.1) mmol/L Chloride 102 (98-107) mmol/L Carbon Dioxide 21 L (22-30) mmol/L BUN 15 (9-20) mg/dL Creatinine 0.91 (0.66-1.25) mg/dL Glucose 155 H (74-99) mg/dL Calcium 9.0 (8.4-10.2) mg/dL AST 285 H (17-59) U/L ALT 240 H (4-49) U/L Alkaline Phosphatase 301 H (38-126) U/L Total Protein 6.5 (6.3-8.2) g/dL Albumin 3.7 (3.5-5.0) g/dL Calcium panel 01/16/23 Range/Units 00:20 Calcium 9.0 (8.4-10.2) mg/dL Albumin 3.7 (3.5-5.0) g/dL Pituitary panel 01/16/23 Range/Units 00:20 Sodium 136 L (137-145) mmol/L Potassium 3.6 (3.5-5.1) mmol/L Chloride 102 (98-107) mmol/L Carbon Dioxide 21 L (22-30) mmol/L BUN 15 (9-20) mg/dL Creatinine 0.91 (0.66-1.25) mg/dL Glucose 155 H (74-99) mg/dL Calcium 9.0 (8.4-10.2) mg/dL Adrenal panel 01/16/23 Range/Units 00:20 Sodium 136 L (137-145) mmol/L Potassium 3.6 (3.5-5.1) mmol/L Chloride 102 (98-107) mmol/L Carbon Dioxide 21 L (22-30) mmol/L BUN 15 (9-20) mg/dL Creatinine 0.91 (0.66-1.25) mg/dL Glucose 155 H (74-99) mg/dL Calcium 9.0 (8.4-10.2) mg/dL Total Bilirubin 2.9 H (0.2-1.3) mg/dL AST 285 H (17-59) U/L ALT 240 H (4-49) U/L Alkaline Phosphatase 301 H (38-126) U/L Total Protein 6.5 (6.3-8.2) g/dL Albumin 3.7 (3.5-5.0) g/dL
[2023-01-16] MEDS: TAMSULOSIN 0.4 MG CAP.ER.24H PO SCH (20:02)
[2023-01-16] MEDS: MORPHINE SULFATE 4 MG/ML SYRINGE IV PRN (21:06)
[2023-01-16] MEDS: ONDANSETRON 4 MG/2 ML VIAL IVP PRN (21:06)
--- NOTE | 2023-01-17 01:10 | HP ---
HISTORY AND PHYSICAL CHIEF COMPLAINTS: Abdominal pain, nausea, vomiting. HISTORY OF PRESENT ILLNESS: This is a 77-year-old gentleman with a past medical history of multiple medical problems including CAD, had a recent knee surgery from elsewhere on the left side. The patient is now complaining of abdominal pain, which is felt in the right side epigastrium with some nausea. The patient had elevated LFTs and also had stone in the distal CBD. The patient being closely monitored by the Surgery. GI evaluation is in progress. There is no history of any fever, rigors, or chills at this time. PAST MEDICAL HISTORY: Reviewed include recent left knee surgery, CAD, hypertension, hyperlipidemia. HOME MEDICATIONS: Duricef. Dose and rest of medications noted. ALLERGIES: None. FAMILY HISTORY: No history of heart disease or strokes in the family. SOCIAL HISTORY: Occasional alcohol. REVIEW OF SYSTEMS: A 14-point review is negative except as mentioned earlier. PHYSICAL EXAMINATION: VITAL SIGNS: Pulse is 90, blood pressure 184/94, respirations 18. HEENT: Conjunctivae normal. NECK: No JVD. CARDIOVASCULAR: S1, S2. RESPIRATIONS: Breath sounds diminished at the bases. ABDOMEN: Soft, mild diffuse tenderness in the right upper quadrant. No guarding. No rigidity. No mass palpable. No ascites. LEGS: Status post left knee arthroplasty. NERVOUS SYSTEM: Nonfocal. LABORATORY DATA: WBC 10.8, sodium 136. LFTs are noted. ASSESSMENT: 1. Acute cholelithiasis with CBD stones and mild obstructive jaundice. 2. History of recent left total knee arthroplasty. 3. Hypertension. 4. Hyperlipidemia. 5. Coronary artery disease. 6. Hyponatremia, mild. RECOMMENDATIONS AND DISCUSSION: This is a 77-year-old gentleman, who presented with multiple complex medical issues. We will monitor the patient closely. Continue the current medications. Broad-spectrum IV antibiotics. Otherwise, I would recommend monitor blood pressure closely. p.r.n. medications. Resume the home medications. Surgery and Gastroenterology evaluations. I would also recommend orthopedic evaluation. DVT prophylaxis. Prognosis guarded. Further recommendations to follow. See orders for further details. MMODL / IJN: [id number] /
[2023-01-17] MEDS: MORPHINE SULFATE 4 MG/ML SYRINGE IV PRN ×2 (01:32→19:52)
--- NOTE | 2023-01-17 05:16 | P.CONS ---
History of Present Illness - Reason for Consult Consult date: 01/16/23 Recent left knee arthroplasty on antibiotics antibiotic recommendation Requesting physician: Erica Donovan - Chief Complaint Right upper quadrant abdominal pain and vomiting x 1 day - History of Present Illness Patient is a 77-year-old male with a past medical his significant for hypertension hyperlipidemia coronary artery disease recently did have a left knee replacement presenting to the hospital for evaluation of right upper quadrant and epigastric abdominal pain patient symptoms started mostly sharp pain to the epigastric and right upper quadrant area severe in intensity with an episode of vomiting patient mention his symptoms initially resolved however did came back for the patient presented to hospital patient denies high-grade fever denies any URI symptoms no chest pain or shortness of breath or cough no diarrhea or constipation denies any pain to the left knee area patient presented to the hospital was afebrile and no fever has been recorded subsequently he did have a white count of 10.8 with a left shift creatinine was 0.91 liver exams are elevated influenza RSV and COVID testings were negative patient did have a chest x-ray no acute findings in the chest abdominal pelvis CT 2 small stones in the distal common bile duct mild right lower lobe infiltrate no gallbladder wall thickening or surrounding edema or fluid patient was admitted to the hospital infectious disease was consulted because of his recent left knee arthroplasty and on antibiotics recommendation apparently the patient is on oral doxycycline postsurgery however the patient mention there was no evidence of any infection to the left knee but it was replaced and has been on prophylaxis doxycycline Review of Systems Positive point and negatives has been mentioned in the HPI, complete review of systems was performed and all other systems are negative Past Medical History Past Medical History: Coronary Artery Disease (CAD), Hyperlipidemia, Hypertension History of Any Multi-Drug Resistant Organisms: None Reported Past Surgical History: Orthopedic Surgery Additional Past Surgical History / Comment(s): Left knee replacement Past Anesthesia/Blood Transfusion Reactions: No Reported Reaction Past Psychological History: No Psychological Hx Reported Past Alcohol Use History: Occasional Past Drug Use History: None Reported Medications and Allergies Home Medications Medication Instructions Recorded Confirmed Type Cyclobenzaprine [Flexeril] 5 mg PO DAILY PRN 04/13/17 01/16/23 History Furosemide [Lasix] 20 mg PO DAILY 04/13/17 01/16/23 History Tamsulosin HCl [Flomax] 0.4 mg PO HS 04/13/17 01/16/23 History gemfibroziL [Lopid] 600 mg PO AC-BRKFST 04/13/17 01/16/23 History hydrALAZINE HCL [Apresoline] 50 mg PO TID 04/13/17 01/16/23 History Acetaminophen Tab [Tylenol] 1,000 mg PO Q8H PRN 01/16/23 01/16/23 History Aspirin EC [Ecotrin Low Dose] 81 mg PO BID 01/16/23 01/16/23 History Doxycycline [Vibramycin] 50 mg PO BID PRN 01/16/23 01/16/23 History Losartan [Cozaar] 50 mg PO DAILY 01/16/23 01/16/23 History Omeprazole [PriLOSEC] 40 mg PO DAILY 01/16/23 01/16/23 History Sildenafil Citrate [Viagra] 50 mg PO DAILY PRN 01/16/23 01/16/23 History amLODIPine [Norvasc] 10 mg PO DAILY 01/16/23 01/16/23 History metroNIDAZOLE 1% GEL [Metrogel 1%] 1 applic TOPICAL DAILY 01/16/23 01/16/23 History Ibuprofen [Motrin] 600 mg PO Q8HR PRN #30 tab 01/18/23 Rx oxyCODONE HCL [OxyIR] 5 mg PO Q6H PRN 3 Days #12 tab 01/18/23 Rx Amoxic-Pot Clav 875-125Mg 1 tab PO Q12HR 7 Days #14 tab 01/21/23 Rx [Augmentin 875-125] Pantoprazole Sodium [Protonix] 40 mg PO DAILY #30 tab 01/21/23 Rx Simethicone 40 mg/0.6 ml Drops 40 mg PO QID PRN #5 ml 01/21/23 Rx [Mylicon Drops] Allergies Allergy/AdvReac Type Severity Reaction Status Date / Time No Known Allergies Allergy Verified 01/18/23 10:21 Physical Exam Vitals: Vital Signs Temp Pulse Pulse Resp BP BP Pulse Ox 01/16/23 15:57 97.4 F L 74 18 173/81 95 01/16/23 13:33 68 16 150/77 96 01/16/23 10:03 97.9 F 68 16 150/77 96 01/16/23 07:45 80 18 151/82 95 01/16/23 04:48 90 18 184/94 96 01/16/23 03:03 90 18 171/90 93 L 01/16/23 01:30 87 18 166/91 93 L 01/15/23 23:47 97.0 F L 71 20 187/84 97 Intake and Output 01/16/23 01/16/23 01/16/23 06:59 14:59 22:59 Other: Weight 117.934 kg 117.934 kg GENERAL DESCRIPTION: An elderly male lying in bed, no distress. No tachypnea or accessory muscle of respiration use. HEENT: Shows Pallor , no scleral icterus. Oral mucous membrane is dry. No pharyngeal erythema or thrush NECK: Trachea central, no thyromegaly. LUNGS: Unlabored breathing. Clear to auscultation anteriorly. No wheeze or crackle. HEART: S1, S2, regular rate and rhythm. No loud murmur ABDOMEN: Soft, right upper quadrant tenderness EXTREMITIES: Left knee currently with minimal swelling no redness no drainage. SKIN: No rash, no masses palpable. NEUROLOGICAL: The patient is awake, alert, oriented x3, mood and affect normal. Results CBC & Chem 7: 01/21/23 06:37 01/21/23 06:37 Labs: Abnormal Lab Results - Last 24 Hours (Table) 01/16/23 01/16/23 Range/Units 00:20 00:20 WBC 10.8 H (3.8-10.6) k/uL RBC 4.18 L (4.30-5.90) m/uL Neutrophils # 8.8 H (1.3-7.7) k/uL Sodium 136 L (137-145) mmol/L Carbon Dioxide 21 L (22-30) mmol/L Glucose 155 H (74-99) mg/dL Total Bilirubin 2.9 H (0.2-1.3) mg/dL AST 285 H (17-59) U/L ALT 240 H (4-49) U/L Alkaline Phosphatase 301 H (38-126) U/L Assessment and Plan (1) Choledocholithiasis Current Visit: Yes Status: Acute Code(s): K80.50 - CALCULUS OF BILE DUCT W/O CHOLANGITIS OR CHOLECYST W/O OBST SNOMED Code(s): 826255526 (2) Transaminitis Current Visit: Yes Status: Acute Code(s): R74.01 - ELEVATION OF LEVELS OF LIVER TRANSAMINASE LEVELS SNOMED Code(s): 787394926 Plan: 1patient presented to hospital with abdominal pain and has been diagnosed with a CBD stones and obstructive jaundice white count is mildly elevated with left shift and concern for possible cholangitis usually associated with gram-negative bacteremia we will need to treat aggressively as the patient did have recent left knee replacement and avoiding bacteremia to prevent seeding of his left prosthetic knee 2-patient has been on outpatient doxycycline prophylaxis per his surgeon however per patient no evidence of any infection at the time of surgery 3-we will start the patient on Zosyn 3.75 g every 8 hours and continue with his oral doxycycline prophylaxis 4-await ERCP in the a.m. We will follow on clinical condition and cultures to further adjust medication if needed Thank you for this consultation we will follow the patient along with you Dictation was produced using Sequence dictation software. please excuse any grammatical, word or spelling errors. Time with Patient: Greater than 30
[2023-01-17] MEDS: PIPERACILLIN-TAZOBACTAM 3.375 GM in SODIUM CHLORIDE 0.9% 100 ML IVPB SCH ×3 (08:48→17:26)
[2023-01-17] MEDS: hydrALAZINE HCL 50 MG TAB PO SCH ×3 (08:49→22:01)
[2023-01-17] MEDS: LOSARTAN 50 MG TAB PO SCH (08:49)
[2023-01-17] MEDS: PANTOPRAZOLE 40 MG/10 ML VIAL IVP SCH ×2 (08:49→22:01)
[2023-01-17] MEDS: amLODIPine 10 MG TAB PO SCH (08:50)
[2023-01-17] MEDS: FUROSEMIDE 20 MG TAB PO SCH (08:50)
[2023-01-17] MEDS: SODIUM CHLORIDE 0.9% 1,000 ML IV SCH ×2 (08:58→22:01)
[2023-01-17] MEDS: DOXYCYCLINE 50 MG CAP PO SCH ×2 (10:47→22:00)
[2023-01-17] MEDS: HEPARIN SODIUM,PORCINE 5,000 UNIT/ML 1 ML VIAL SQ SCH ×2 (11:34→22:01)
[2023-01-17] MEDS ORDERED: LEVOFLOXACIN 500MG-D5W PMX 500 MG in DEXTROSE/WATER 1 100ML.BAG IVPB SCH (12:00)
[2023-01-17] MEDS ORDERED: INDOMETHACIN 100 MG SUPPOSITORY RECTAL ONE (12:00)
--- NOTE | 2023-01-17 12:01 | P.PN ---
Subjective Progress Note Date: 01/17/23 CHIEF COMPLAINT: Choledocholithiasis HISTORY OF PRESENT ILLNESS: Patient reports having pain during the night with nausea located in the right upper quadrant. He did require IV pain medication. Pain is better this morning. He is scheduled for ERCP today. Afebrile. Labs for today pending PHYSICAL EXAM: VITAL SIGNS: Reviewed. GENERAL: Well-developed in no acute distress. ABDOMEN: Soft. Nondistended. Nontender. NEUROLOGIC: Alert and oriented. Cranial nerves II through XII grossly intact. ASSESSMENT: 1. Choledocholithiasis 2. Right upper quadrant abdominal pain PLAN: -Patient scheduled for ERCP today with GI service -Plan for laparoscopic cholecystectomy with Dr. Moreland tomorrow, 01/18/2023 -Nothing by mouth after midnight -Continue supportive care -Repeat labs in a.m. Physician Wood Boat Builder Supervisor note has been reviewed by physician. Signing provider agrees with the documented findings, assessment, and plan of care. Objective - Vital Signs Vital signs: Vital Signs Temp 98.0 F 01/17/23 07:13 Pulse 69 01/17/23 07:13 Resp 18 01/17/23 07:13 BP 160/81 01/17/23 07:13 Pulse Ox 97 01/17/23 07:13 FiO2 Intake & Output 01/16/23 01/17/23 01/17/23 18:59 06:59 18:59 Output Total 600 Balance -600 Weight 117.934 kg Output: Urine 600 Other: # Voids 3 3 - Labs CBC & Chem 7: 01/16/23 00:20 01/16/23 00:20
--- NOTE | 2023-01-17 13:04 | P.PN ---
Subjective Progress Note Date: 01/17/23 Principal diagnosis: Reason for follow-up is possible cholangitis and recent left knee replacement Patient is a 77-year-old male with a past medical his significant for hypertension hyperlipidemia coronary artery disease recently did have a left knee replacement presenting to the hospital for evaluation of right upper quadrant and epigastric abdominal pain patient did have evidence of obstructive jaundice and concerning for stone in the distal CBD. On today's evaluation that is 01/17/2023, the patient remains to be afebrile , the patient is breathing comfortably on room air and denies any shortness of breath, the patient denies chest pain or cough , patient right upper quadrant abdominal pain has decreased in intensity, no nausea/vomiting and no diarrhea h as been reported , denies pain to the left knee No new labs obtained today Objective - Vital Signs Vital signs: Vital Signs Temp 98.0 F 01/17/23 07:13 Pulse 69 01/17/23 07:13 Resp 18 01/17/23 07:13 BP 160/81 01/17/23 07:13 Pulse Ox 97 01/17/23 07:13 FiO2 Intake & Output 01/16/23 01/17/23 01/17/23 18:59 06:59 18:59 Output Total 600 Balance -600 Weight 117.934 kg Output: Urine 600 Other: # Voids 3 3 - Exam GENERAL DESCRIPTION: An elderly male up in the room in no distress RESPIRATORY SYSTEM: Unlabored breathing , clear to auscultation anteriorly HEART: S1 S2 regular rate and rhythm , ABDOMEN: Soft , no tenderness EXTREMITIES: Left knee currently dressed no drainage - Labs CBC & Chem 7: 01/16/23 00:20 01/16/23 00:20 Assessment and Plan (1) Choledocholithiasis Current Visit: Yes Status: Acute Code(s): K80.50 - CALCULUS OF BILE DUCT W/O CHOLANGITIS OR CHOLECYST W/O OBST SNOMED Code(s): 778755178 (2) Transaminitis Current Visit: Yes Status: Acute Code(s): R74.01 - ELEVATION OF LEVELS OF LIVER TRANSAMINASE LEVELS SNOMED Code(s): 312672477 Plan: 1patient presented to hospital with abdominal pain and has been diagnosed with a CBD stones and obstructive jaundice white count is mildly elevated with left shift and concern for possible cholangitis usually associated with gram-negative bacteremia we will need to treat aggressively as the patient did have recent left knee replacement and avoiding bacteremia to prevent seeding of his left prosthetic knee 2-patient to continue with doxycycline prophylaxis per his surgeon along with Zosyn and monitor clinical course closely Dictation was produced using [employer] dictation software. please excuse any grammatical, word or spelling errors. Time with Patient: Less than 30
[2023-01-17 13:16] LABS: Basophils # (A) 0.14 X 10*3/uL (0.00-0.10); Basophils % (A) 1.3 %; Eosinophils % (A) 3.8 %; HCT 40.5 % (39.6-50.0); HGB 13.8 g/dL (13.0-17.0); Lymphocytes # (A) 2.46 X 10*3/uL (0.90-5.00); Lymphocytes % (A) 23.6 %; MCH 32.3 pg (27.0-32.0); MCHC 34.1 g/dL (32.0-37.0); MCV 94.8 FL (80.0-97.0); Mean Platelet Volume 10.5 FL (9.5-12.2); Monocytes # (A) 0.76 X 10*3/uL (0.20-1.00); Monocytes % (A) 7.3 %; NRBC Per 100 WBC 0 X 10*3/uL (0.00-0.01); Neutrophils # (A) 6.61 X 10*3/uL (1.80-7.70); Neutrophils % (A) 63.3 %; Platelet Count 386 X 10*3/uL (140-440); RBC 4.27 X 10*6/uL (4.40-5.60); RDW 13.2 % (11.5-14.5); WBC 10.44 X 10*3/uL (4.50-10.00)
[2023-01-17] MEDS ORDERED: PROPOFOL 10 MG/ML 20 ML VIAL IV ONE (14:07)
[2023-01-17] MEDS ORDERED: fentaNYL (PF) 50 MCG/ML 2 ML AMP ONE (14:07)
[2023-01-17] MEDS ORDERED: GLYCOPYRROLATE 0.2 MG/ML 2 ML VIAL ONE (14:07)
[2023-01-17] MEDS ORDERED: LIDOCAINE 1% INJ 10MG/ML (20 ML MDV) ONE (14:07)
[2023-01-17] MEDS ORDERED: MIDAZOLAM 2 MG/2 ML VIAL ONE (14:07)
[2023-01-17] MEDS ORDERED: IV FLUID CONTINUATION 900 ML IV ONE (14:18)
[2023-01-17 14:23] LABS: ALT 265 U/L (10-49); AST 174 U/L (14-35); Alkaline Phosphatase 294 U/L (41-126); BUN/Creat Ratio 14.11 Ratio (12.00-20.00); Blood Urea Nitrogen 12.7 mg/dL (9.0-27.0); Carbon Dioxide 24.6 mmol/L (21.6-31.8); Chloride 103 mmol/L (96-109); Globulin 2.5 g/dL (1.6-3.3); Glucose 115 mg/dL (70-110); Potassium 3.9 mmol/L (3.5-5.5); Sodium 141 mmol/L (135-145); Total Bilirubin 1.8 mg/dL (0.3-1.2); Total Protein 6.5 g/dL (6.2-8.2)
[2023-01-17] MEDS ORDERED: IOPAMIDOL-300 50ML BTL INJ ONE (14:35)
--- NOTE | 2023-01-17 14:37 | P.PCN ---
Date of Procedure: 01/17/23 Procedure(s) Performed: Brief history: Patient is a 77 year-old pleasant white male scheduled for an ERCP as part of evaluation of abdominal pain and elevated serum transaminases for the last [address] of abdomen done that showed evidence of gallstones and 2 small stones in the distal common bile duct and hence he scheduled for an ERCP for CT stone extraction Procedure performed: ERCP with biliary sphincterotomy and balloon stone extraction Preoperative diagnoses: Epigastric and right upper quadrant abdominal pain and elevated LFTs and CAT scan showing distal common bile duct stones IV sedation per anesthesia: Procedure: After informed consent was obtained from the patient and after the risks benefits and complications including bleeding perforation and pancreatitis explained in detail the patient was brought into the endoscopy unit. The patient was placed in prone position and IV conscious sedation was administered by anesthesia under continuous monitoring. The Olympus side-viewing duodenoscope was then inserted into the mouth and esophagus intubated without any difficulty. The scope was gradually advanced into the stomach and duodenum. The major papilla was identified without any difficulty. Initial cannulation resulted in opacification of the pancreatic duct appeared normal. Subsequent cannulation resulted in opacification of the common bile duct and upon injection of the dye the common bile duct was slightly dilated at 7 mm in diameter. There were 2 small filling defect noted in the distal common bile duct. At this time the catheter was exchanged over a guidewire and a biliary sphincterotome was advanced over the guidewire into the CBD. A sphincterotomy was performed at 11 o'clock position and was extended to 1 cm. Following this an 8.5 mm balloon was passed over the guidewire into the proximal CBD and gently inflated and withdrawn and 2 small stones were extracted age measuring approximately 3-4 mm in size. This maneuver was repeated 2 more times. Occlusion cholangiogram was performed and no other filling defects were noted. Patient tolerated the procedure well. Impression: Slightly dilated common bile duct measuring 7 mm in diameter with 2 small filling defects status post biliary sphincterotomy and balloon stone extraction as described above Pancreatic duct appeared normal. Recommendations: The findings of this examination were discussed with the patient as well as a family. He'll be started on clear liquids today. Repeat labs in the morning.
--- NOTE | 2023-01-17 15:25 | FL ---
Fluoroscopy History: Cholelithiasis cholelithiasis, 21sec fl time, 7.8203
[2023-01-17 16:07] LABS: INR 0.9 (<1.2); Prothrombin Time 10.4 sec (10.0-12.5)
[2023-01-17] MEDS: ONDANSETRON 4 MG/2 ML VIAL IVP PRN (19:52)
--- NOTE | 2023-01-17 20:52 | PN ---
PROGRESS NOTE DATE OF SERVICE: 01/17/2023 SUBJECTIVE: This is a 77-year-old gentleman, who was admitted with acute cholelithiasis and CBD obstruction. He is scheduled to have ERCP followed by possible cholecystectomy. No chest pain. No palpitation. OBJECTIVE: VITAL SIGNS: Pulse 69, blood pressure 160/80, respirations 18. CHEST: A few scattered rhonchi. ABDOMEN: Soft, obese. LEGS: No edema. NERVOUS SYSTEM: Nonfocal. LABORATORY DATA: Reviewed. ASSESSMENT: 1. Acute cholelithiasis with CBD stones and mild obstructive jaundice, possibly cholangitis. 2. History of recent left total knee arthroplasty. 3. Hypertension. 4. Hyperlipidemia. 5. History of coronary artery disease. 6. Hyponatremia, mild. RECOMMENDATION AND DISCUSSION: Recommend to continue current medications. Continue symptomatic treatment with ERCP, cholecystectomy. Otherwise, we will continue to monitor. Further recommendations to follow. MMODL / IJN: [id number] /
[2023-01-17] MEDS: TAMSULOSIN 0.4 MG CAP.ER.24H PO SCH (22:01)
[2023-01-18] MEDS: MORPHINE SULFATE 4 MG/ML SYRINGE IV PRN (00:04)
[2023-01-18] MEDS: PIPERACILLIN-TAZOBACTAM 3.375 GM in SODIUM CHLORIDE 0.9% 100 ML IVPB SCH ×4 (00:05→23:28)
[2023-01-18] MEDS: HYDROmorphone 1 MG/ML 1 ML SYRINGE IVP PRN ×2 (03:35→06:58)
[2023-01-18 07:14] LABS: Basophils % (A) 0 %; Eosinophils # (A) 0.2 k/uL (0-0.7); Eosinophils % (A) 1 %; HCT 44.2 % (39.0-53.0); Lymphocytes # (A) 1.9 k/uL (1.0-4.8); Lymphocytes % (A) 13 %; MCH 32.7 pg (25.0-35.0); MCHC 33.9 g/dL (31.0-37.0); MCV 96.5 fL (80.0-100.0); Monocytes # (A) 0.8 k/uL (0-1.0); Monocytes % (A) 6 %; Neutrophils # (A) 11.7 k/uL (1.3-7.7); Neutrophils % (A) 79 %; Platelet Count 408 k/uL (150-450); RBC 4.58 m/uL (4.30-5.90); RDW 13.1 % (11.5-15.5); WBC 14.7 k/uL (3.8-10.6)
[2023-01-18] MEDS: DOXYCYCLINE 50 MG CAP PO SCH ×2 (08:10→23:47)
[2023-01-18] MEDS: LOSARTAN 50 MG TAB PO SCH (08:11)
[2023-01-18] MEDS: PANTOPRAZOLE 40 MG/10 ML VIAL IVP SCH ×2 (08:11→23:47)
[2023-01-18] MEDS: amLODIPine 10 MG TAB PO SCH (08:11)
[2023-01-18] MEDS: hydrALAZINE HCL 50 MG TAB PO SCH ×3 (08:11→23:47)
[2023-01-18] MEDS: FUROSEMIDE 20 MG TAB PO SCH (08:11)
[2023-01-18] MEDS ORDERED: LACTATED RINGERS 1,000 ML IV ONE (10:15)
[2023-01-18] MEDS: HEPARIN SODIUM,PORCINE 5,000 UNIT/ML 1 ML VIAL SQ SCH ×2 (10:23→23:47)
[2023-01-18] MEDS ORDERED: diphenhydrAMINE 50 MG/ML 1 ML VIAL ONE (10:40)
[2023-01-18] MEDS ORDERED: HYDROmorphone (PF) 1 MG/ML ONE (10:48)
[2023-01-18] MEDS ORDERED: ROCURONIUM 10 MG/ML (5 ML VIAL) IV ONE (10:48)
[2023-01-18] MEDS ORDERED: PROPOFOL 10 MG/ML 20 ML VIAL IV ONE (10:48)
[2023-01-18] MEDS ORDERED: SUCCINYLCHOLINE CHLORIDE 200 MG/10 ML VIAL IV ONE (10:48)
[2023-01-18] MEDS ORDERED: GLYCOPYRROLATE 0.2 MG/ML 2 ML VIAL ONE (10:48)
[2023-01-18] MEDS ORDERED: LIDOCAINE 1% INJ 10MG/ML (20 ML MDV) ONE (10:48)
[2023-01-18] MEDS ORDERED: NEOSTIGMINE 1 MG/ML 10 ML VIAL ONE (10:48)
[2023-01-18] MEDS ORDERED: fentaNYL (PF) 50 MCG/ML 2 ML AMP ONE (10:48)
[2023-01-18] MEDS ORDERED: HEPARIN SODIUM,PORCINE/PF 5,000 UNIT/0.5 ML SYRINGE SQ ONE (10:49)
[2023-01-18] MEDS ORDERED: DEXAMETHASONE SOD PHOSPHATE 4 MG/ML 1 ML VIAL IVP ONE (10:50)
[2023-01-18] MEDS ORDERED: diphenhydrAMINE 50 MG/ML 1 ML VIAL IVP ONE (10:50)
[2023-01-18] MEDS ORDERED: ONDANSETRON 4 MG/2 ML VIAL IVP ONE (10:52)
[2023-01-18] MEDS ORDERED: BUPIVACAINE (PF) 0.25% 30 ML VIAL SQ ONE (11:09)
[2023-01-18 11:14] LABS: ALT 240 U/L (10-49); AST 126 U/L (14-35); Alkaline Phosphatase 372 U/L (41-126); BUN/Creat Ratio 14.44 Ratio (12.00-20.00); Calcium 9.1 mg/dL (8.7-10.3); Carbon Dioxide 23.4 mmol/L (21.6-31.8); Chloride 101 mmol/L (96-109); Globulin 2.5 g/dL (1.6-3.3); Glucose 93 mg/dL (70-110); Potassium 3.7 mmol/L (3.5-5.5); Sodium 139 mmol/L (135-145); Total Bilirubin 1.3 mg/dL (0.3-1.2); Total Protein 6.5 g/dL (6.2-8.2)
[2023-01-18] MEDS ORDERED: SODIUM CHLORIDE 0.9% 1,000 ML IV ONE (11:28)
[2023-01-18] MEDS ORDERED: HYDROmorphone 1 MG/ML 1 ML SYRINGE IVP PRN (11:38)
--- NOTE | 2023-01-18 11:38 | P.OP ---
Date of Procedure: 01/18/23 Preoperative Diagnosis: Cholelithiasis Postoperative Diagnosis: Cholelithiasis Cholecystitis Procedure(s) Performed: Laparoscopic cholecystectomy Anesthesia: JUAN Surgeon: Greg Moreland Estimated Blood Loss (ml): 5 Pathology: other (Gallbladder) Condition: stable Disposition: PACU Description of Procedure: The patient was placed on the operating table. The patient received a general endotracheal tube anesthesia. The patients abdomen was prepped and draped in the usual sterile fashion. Through an infraumbilical stab incision, the fascia of the anterior abdominal wall was grasped with a pair of Kochers and then the Veress needle was placed in the peritoneal cavity. Position of the Veress needle was confirmed with positive drop test. The abdomen was then insufflated. After adequate insufflation, the 10 mm trocar was placed in the peritoneal cavity. Following this the laparoscope was placed in the peritoneal cavity. The patient was placed in the head-up, right side up position and then a 5 mm trocar was placed in the right lateral and right subcostal position under direct visualization. A 8 mm trocar was placed in the epigastric position. The gallbladder was grasped in the fundus and infundibulum. Traction on the gallbladder was placed in the lateral and the cephalad positions. The triangle of Calot was visualized.. The cystic duct was bluntly dissected until the union of the cystic duct and common bile duct was seen. A critical view of safety was achieved. The cystic duct was then divided and sealed with the Harmonic scissors. A PDS Endoloop was then placed throughout the cystic duct stump. The cystic artery divided and sealed with the Harmonic scissors. The gallbladder was then removed from the liver bed using Harmonic scissors. The gallbladder was then extracted through the epigastric port site. Operative field was checked for any bleeding spots and Harmonic scissors was used to coagulate the liver bed. The abdomen was irrigated. The trocars were removed. The skin was closed using interrupted 3-0 Vicryl suture. Dermabond dressing were applied. The patient tolerated the procedure well.
[2023-01-18] MEDS: SODIUM CHLORIDE 0.9% 1,000 ML IV SCH (13:04)
--- NOTE | 2023-01-18 13:46 | P.PN ---
Subjective Progress Note Date: 01/18/23 Principal diagnosis: Choledocholithiasis This is a pleasant 77-year-old male who presented to the emergency department yesterday evening with complaints of right upper quadrant and epigastric pain. States pain started 2 days ago however it only lasted about 2 hours that evening and then again yesterday he ate dinner and then following that around 7 PM the pain returned and was sharp and continued causing nausea and vomiting. Patient's past medical history includes recent left knee surgery done 5-6 days ago, coronary artery disease, hyperlipidemia and hypertension. This morning he states abdominal pain has improved. He states he has no pain and no further nausea or vomiting. On admission he was noted to have elevated liver enzymes and had a CT of the abdomen and pelvis concerning for multiple gallstones as well as CBD stone. Gastroenterology was consulted for choledochollithiasis. Again currently he denies any abdominal pain, nausea or vomiting. He denies sh ortness of breath or chest pain, no body aches, fevers or chills. Admitting Labs WBC 10.8 hemoglobin 13.7 hematocrit 39 platelet count 328,000 INR 0.9 sodium 136 potassium 3.6 BUN 15 creatinine 0.9 glucose 155 total bilirubin 2.9 AST 285 AST 240 alkaline phosphatase 301 01/18/2023 Patient seen and examined today as a follow-up for choledocholithiasis. Yesterday he underwent ERCP with findings of 2 small filling defects status post biliary sphincterectomy and balloon stone extraction. Patient states he had a lot of pain last night diffuse, felt like gas pain. Denies any flatus. No nausea or vomiting. He is currently nothing by mouth and scheduled for cholecystectomy today. Morning labs were pending. Objective - Vital Signs Vital signs: Vital Signs Temp 98 F 01/18/23 01:58 Pulse 76 01/18/23 01:58 Resp 18 01/18/23 01:58 BP 183/77 01/18/23 01:58 Pulse Ox 95 01/18/23 01:58 FiO2 Intake & Output 01/17/23 01/18/23 01/18/23 18:59 06:59 18:59 Intake Total 300 Output Total 325 250 Balance -25 -250 Intake: IV 300 Output: Urine 325 250 Other: Voiding Method Urinal - Exam General appearance: The patient is alert, oriented, appears in no acute distress. HET: Head is normocephalic and atraumatic. Conjunctiva pink. Sclera anicteric. Neck: Supple without lymphadenopathy. Abdomen: Soft, epigastric and right upper quadrant tenderness, nondistended. No guarding or rigidity. Extremities: Normal skin color and turgor. No pedal edema Skin: No rashes, no jaundice Neurological: No focal deficits. Alert and oriented. - Labs CBC & Chem 7: 01/18/23 06:16 01/18/23 06:16 Labs: Abnormal Lab Results - Last 24 Hours (Table) 01/17/23 01/17/23 01/18/23 Range/Units 07:07 07:07 06:16 WBC 10.44 H 14.7 H (4.50-10.00) X 10*3/uL RBC 4.27 L (4.40-5.60) X 10*6/uL MCH 32.3 H (27.0-32.0) pg Neutrophils # 11.7 H (1.3-7.7) k/uL Eosinophils # 0.40 H (0.04-0.35) X 10*3/uL Basophils # 0.14 H (0.00-0.10) X 10*3/uL Anion Gap 13.40 H (4.00-12.00) mmol/L Glucose 115 H (70-110) mg/dL Total Bilirubin 1.8 H (0.3-1.2) mg/dL AST 174 H (14-35) U/L ALT 265 H (10-49) U/L Alkaline Phosphatase 294 H (41-126) U/L Assessment and Plan (1) Choledocholithiasis Narrative/Plan: This 77-year-old male presenting with right upper quadrant and epigastric pain associated with nausea and vomiting for 2 days duration had elevated LFTs consistent with cholestatic pattern as well as CT of the abdomen and pelvis reporting multiple gallstones as well as concern for 2 small stones in the distal common bile duct. Patient had recent knee surgery denies any anticoagulation however does take daily low-dose aspirin. We'll hold aspirin and plan for ERCP tomorrow. Procedure discussed with patient including risks and benefits and he has agreeable to proceed. 01/18/2023 Patient is status post ERCP with 2 small filling defects status post biliary sphincterectomy and balloon stone extraction. LFTs are trending down. Patient scheduled for cholecystectomy today. Current Visit: Yes Status: Acute Code(s): K80.50 - CALCULUS OF BILE DUCT W/O CHOLANGITIS OR CHOLECYST W/O OBST SNOMED Code(s): 463348913 (2) Cholelithiasis Narrative/Plan: General surgery following Current Visit: Yes Status: Acute Code(s): K80.20 - CALCULUS OF GALLBLADDER W/O CHOLECYSTITIS W/O OBSTRUCTION SNOMED Code(s): 483212955 (3) Transaminitis Current Visit: Yes Status: Acute Code(s): R74.01 - ELEVATION OF LEVELS OF LIVER TRANSAMINASE LEVELS SNOMED Code(s): 672736520 Plan: 1. Continue symptomatic supportive care 2. Pain medication as needed 3. Antiemetics as needed 4. Protonix 40 mg daily for GI prophylaxis 5. Patient is status post ERCP and scheduled for cholecystectomy today 6. Diet per recommendations from general surgery 7. Repeat CMP, lipase ordered 8. Patient is cleared from gastroenterology for discharge Thank you for this consultation, we will sign off at this time. Dr. Paty Ortiz I agree with the dictator's note, documented as a scribe by Maria Isabel Rajput.
--- NOTE | 2023-01-18 14:40 | PN ---
PROGRESS NOTE DATE OF SERVICE: 01/18/2023 SUBJECTIVE: This is a 77-year-old gentleman, who was admitted with acute cholelithiasis and CBD stones, underwent ERCP. The patient underwent cholecystectomy today. No chest pain. No palpitation. PHYSICAL EXAMINATION: VITAL SIGNS: Pulse is 78, blood pressure 143/65, respirations 16. CHEST: Clear to auscultation. CARDIOVASCULAR: S1 and S2. ABDOMEN: Soft. Status post surgery. Obese. LABORATORY DATA: Reviewed. ASSESSMENT: 1. Acute cholelithiasis with common bile duct stones and mild obstructive jaundice, possibly cholangitis. 2. History of recent left total knee arthroplasty. 3. Hypertension. 4. Hyperlipidemia. 5. History of coronary artery disease. 6. Hyponatremia, mild. RECOMMENDATIONS: Recommend to continue current medications. Continue symptomatic treatment. Otherwise, at this time, I recommend to repeat labs. Continue with antibiotics. DVT prophylaxis. Proton pump inhibitors. Closely follow with multiple consultants. Further recommendations to follow. MMODL / IJN: [id number] /
[2023-01-18] MEDS: SIMETHICONE 40 MG/0.6 ML DROPS 2,000 MG/30 ML BOTTLE PO SCH ×3 (15:42→23:50)
[2023-01-18] MEDS: HYDROcodone/APAP 5-325MG 1 EACH TAB PO PRN (18:06)
[2023-01-18] MEDS: TAMSULOSIN 0.4 MG CAP.ER.24H PO SCH (23:47)
[2023-01-18] MEDS: TEMAZEPAM 7.5 MG CAP PO PRN (23:52)
[2023-01-19] MEDS: SODIUM CHLORIDE 0.9% 1,000 ML IV SCH ×2 (01:45→13:27)
[2023-01-19 07:38] LABS: Basophils % (A) 0 %; Eosinophils # (A) 0.1 k/uL (0-0.7); Eosinophils % (A) 1 %; HCT 36.9 % (39.0-53.0); HGB 13.2 gm/dL (13.0-17.5); Lymphocytes # (A) 1.3 k/uL (1.0-4.8); Lymphocytes % (A) 7 %; MCH 33.7 pg (25.0-35.0); MCHC 35.8 g/dL (31.0-37.0); MCV 94.3 fL (80.0-100.0); Mean Platelet Volume 7.7; Monocytes # (A) 1.1 k/uL (0-1.0); Monocytes % (A) 6 %; Neutrophils # (A) 16.1 k/uL (1.3-7.7); Neutrophils % (A) 86 %; Platelet Count 311 k/uL (150-450); RBC 3.91 m/uL (4.30-5.90); RDW 12.7 % (11.5-15.5); WBC 18.8 k/uL (3.8-10.6)
[2023-01-19 07:51] LABS: ALT 162 U/L (4-49); AST 81 U/L (17-59); African American GFR (CKD) >90 (>60 ml/min/1.73 sqM); Albumin 3.4 g/dL (3.5-5.0); Albumin/Globulin Ratio 1.3; Alkaline Phosphatase 248 U/L (38-126); Anion Gap 9 mmol/L; Blood Urea Nitrogen 12 mg/dL (9-20); Calcium 8.4 mg/dL (8.4-10.2); Carbon Dioxide 22 mmol/L (22-30); Chloride 102 mmol/L (98-107); Globulin 2.7 g/dL; Glucose 118 mg/dL (74-99); Magnesium 1.7 mg/dL (1.6-2.3); Non-African American GFR(CKD) >90 (>60 ml/min/1.73 sqM); Potassium 3.3 mmol/L (3.5-5.1); Sodium 133 mmol/L (137-145); Total Bilirubin 1.3 mg/dL (0.2-1.3); Total Protein 6.1 g/dL (6.3-8.2)
[2023-01-19] MEDS: HYDROcodone/APAP 5-325MG 1 EACH TAB PO PRN ×2 (09:04→12:16)
[2023-01-19] MEDS: PANTOPRAZOLE 40 MG/10 ML VIAL IVP SCH ×2 (09:04→21:14)
[2023-01-19] MEDS: HEPARIN SODIUM,PORCINE 5,000 UNIT/ML 1 ML VIAL SQ SCH ×2 (09:04→21:14)
[2023-01-19] MEDS: hydrALAZINE HCL 50 MG TAB PO SCH ×3 (09:05→21:15)
[2023-01-19] MEDS: amLODIPine 10 MG TAB PO SCH (09:05)
[2023-01-19] MEDS: LOSARTAN 50 MG TAB PO SCH (09:05)
[2023-01-19] MEDS: FUROSEMIDE 20 MG TAB PO SCH (09:05)
[2023-01-19] MEDS: PIPERACILLIN-TAZOBACTAM 3.375 GM in SODIUM CHLORIDE 0.9% 100 ML IVPB SCH ×3 (09:05→23:29)
[2023-01-19] MEDS: SIMETHICONE 40 MG/0.6 ML DROPS 2,000 MG/30 ML BOTTLE PO SCH ×4 (09:06→21:15)
[2023-01-19] MEDS: DOXYCYCLINE 50 MG CAP PO SCH ×2 (09:13→21:14)
--- NOTE | 2023-01-19 11:46 | P.PN ---
Subjective Progress Note Date: 01/19/23 Principal diagnosis: Reason for follow-up is possible cholangitis and recent left knee replacement Patient is a 77-year-old male with a past medical his significant for hypertension hyperlipidemia coronary artery disease recently did have a left knee replacement presenting to the hospital for evaluation of right upper quadrant and epigastric abdominal pain patient did have evidence of obstructive jaundice and concerning for stone in the distal CBD. Patient is status post ERCP and did have a cholecystectomy completed on 01/18/2023 On today's evaluation that is 01/19/2023, the patient remains to be afebrile, the patient is breathing comfortably on room air, the patient denies shortness of breath, chest pain and no cough , patient denies abdominal pain, no naus ea/vomiting and no diarrhea has been reported Patient did have white count of 18.8, creatinine 0.6 Objective - Vital Signs Vital signs: Vital Signs Temp 98.4 F 01/19/23 07:22 Pulse 89 01/19/23 07:22 Resp 18 01/19/23 07:22 BP 175/86 01/19/23 07:22 Pulse Ox 94 L 01/19/23 07:22 FiO2 Intake & Output 01/18/23 01/19/23 01/19/23 18:59 06:59 18:59 Intake Total 1000 Output Total 255 700 Balance 745 -700 Weight 117.934 kg Intake: IV 1000 Output: Urine 250 700 Estimated Blood Loss 5 Other: Voiding Method Urinal Urinal # Voids 3 - Exam GENERAL DESCRIPTION: An elderly male up in the room in no distress RESPIRATORY SYSTEM: Unlabored breathing , clear to auscultation anteriorly HEART: S1 S2 regular rate and rhythm , ABDOMEN: Soft , no tenderness EXTREMITIES: Left knee currently dressed no drainage - Labs CBC & Chem 7: 01/19/23 07:07 01/19/23 07:07 Labs: Abnormal Lab Results - Last 24 Hours (Table) 01/18/23 01/19/23 01/19/23 Range/Units 06:16 07:07 07:07 WBC 18.8 H (3.8-10.6) k/uL RBC 3.91 L (4.30-5.90) m/uL Hct 36.9 L (39.0-53.0) % Neutrophils # 16.1 H (1.3-7.7) k/uL Monocytes # 1.1 H (0-1.0) k/uL Sodium 133 L (137-145) mmol/L Potassium 3.3 L (3.5-5.1) mmol/L Glucose 118 H (74-99) mg/dL AST 81 H (17-59) U/L ALT 162 H (4-49) U/L Alkaline Phosphatase 248 H (38-126) U/L Total Protein 6.1 L (6.3-8.2) g/dL Albumin 3.4 L (3.5-5.0) g/dL Lipase 2181 H (14-60) U/L Assessment and Plan (1) Choledocholithiasis Current Visit: Yes Status: Acute Code(s): K80.50 - CALCULUS OF BILE DUCT W/O CHOLANGITIS OR CHOLECYST W/O OBST SNOMED Code(s): 628516642 (2) Transaminitis Current Visit: Yes Status: Acute Code(s): R74.01 - ELEVATION OF LEVELS OF LIVER TRANSAMINASE LEVELS SNOMED Code(s): 114576521 Plan: 1patient presented to hospital with abdominal pain and has been diagnosed with a CBD stones and obstructive jaundice white count is mildly elevated with left shift and concern for possible cholangitis usually associated with gram-negative bacteremia, the patient is status post ERCP followed by laparoscopic cholecystectomy 2-patient to continue with doxycycline prophylaxis per his surgeon along with Zosyn and monitor clinical course closely 3-slight worsening of the white count questionably reactive post surgery will be monitored closely Dictation was produced using [employer] dictation software. please excuse any grammatical, word or spelling errors. Time with Patient: Less than 30
[2023-01-19] MEDS ORDERED: Potassium Replacement Protocol 1 EACH MISC MISCELLANE PRN (12:25)
[2023-01-19] MEDS: POTASSIUM CHLORIDE ER 20 MEQ TAB.ER PO SCH ×4 (13:17→22:16)
[2023-01-19 13:43] LABS: Amylase 111 U/L (30-110); Lipase 401 U/L (23-300)
--- NOTE | 2023-01-19 14:19 | XR ---
EXAMINATION TYPE: XR chest 1V portable DATE OF EXAM: 01/19/2023 Comparison: 01/16/2023 Clinical History: 77-year-old male pneumonia Findings: Heart mildly enlarged. Hazy peripheral left lung density likely relates to obliquity and leftward pat ient rotation. No yolanda consolidation or pleural effusion is seen. Impression: Mild cardiomegaly. Hypoventilatory changes. No definite acute process. Some limitations due to positi oning and left rotation. If persistent concern, consider short interval follow-up.
--- NOTE | 2023-01-19 14:22 | PN ---
PROGRESS NOTE DATE OF SERVICE: 01/19/2023 SUBJECTIVE: This is a 77-year-old gentleman, who was admitted after choledocholithiasis and as well as cholelithiasis, underwent laparoscopic cholecystectomy with Dr. Moreland. The patient is being closely monitored. The patient has a high white count of 18.0. The patient is on empiric antibiotics. Potassium is 3.0. LFTs are still elevated. Bilirubin is showing a downward trend. Lipase is also elevated. PAST MEDICAL HISTORY: Reviewed. REVIEW OF SYSTEMS: Fourteen-point review is negative except as mentioned earlier. CURRENT MEDICATIONS: Reviewed include Zosyn. Doses and rest of the medications are noted. PHYSICAL EXAMINATION: VITAL SIGNS: Pulse is 89, blood pressure 170/82, respirations 18. HEENT: Conjunctivae are normal. NECK: No jugular venous distention. CARDIOVASCULAR: S1 and S2. RESPIRATORY: Breath sounds diminished at the bases. Few scattered rhonchi. ABDOMEN: Soft. Obese. LEGS: No edema. NERVOUS SYSTEM: Nonfocal. LABORATORY DATA: Reviewed. ASSESSMENT: 1. Acute cholelithiasis with common bile duct stones and mild obstructive jaundice, possibly cholangitis, status post endoscopic retrograde cholangiopancreatography and laparoscopic cholecystectomy. 2. Mild acute pancreatitis possibly. 3. History of recent left total knee arthroplasty. 4. Hypertension. 5. Hyperlipidemia. 6. History of coronary artery disease. 7. Hyponatremia, mild. RECOMMENDATIONS: Recommend to continue current medications. Continue symptomatic treatment. Otherwise, I would recommend amylase and lipase today and continue to monitor. Other than that, repeat labs. Potassium supplementation. Hydralazine p.r.n. for blood pressures. Portable chest x-ray. Overall prognosis is guarded because of multiple complex medical issues. We will follow the patient closely with multiple consultants. Further recommendations to follow. MMODL / IJN: [id number] /
[2023-01-19] MEDS: HYDROmorphone 1 MG/ML 1 ML SYRINGE IVP PRN ×2 (16:01→21:17)
[2023-01-19] MEDS: TAMSULOSIN 0.4 MG CAP.ER.24H PO SCH (21:15)
[2023-01-19] MEDS: TEMAZEPAM 7.5 MG CAP PO PRN (21:23)
[2023-01-20] MEDS: POTASSIUM CHLORIDE ER 20 MEQ TAB.ER PO SCH ×2 (01:07→02:18)
[2023-01-20] MEDS: SODIUM CHLORIDE 0.9% 1,000 ML IV SCH (04:27)
[2023-01-20] MEDS: amLODIPine 10 MG TAB PO SCH (08:16)
[2023-01-20] MEDS: hydrALAZINE HCL 50 MG TAB PO SCH ×3 (08:16→20:24)
[2023-01-20] MEDS: HEPARIN SODIUM,PORCINE 5,000 UNIT/ML 1 ML VIAL SQ SCH ×2 (08:16→20:24)
[2023-01-20] MEDS: FUROSEMIDE 20 MG TAB PO SCH (08:16)
[2023-01-20] MEDS: PANTOPRAZOLE 40 MG/10 ML VIAL IVP SCH ×2 (08:16→20:24)
[2023-01-20] MEDS: LOSARTAN 50 MG TAB PO SCH (08:16)
[2023-01-20] MEDS: DOXYCYCLINE 50 MG CAP PO SCH ×2 (08:16→20:24)
[2023-01-20] MEDS: PIPERACILLIN-TAZOBACTAM 3.375 GM in SODIUM CHLORIDE 0.9% 100 ML IVPB SCH ×3 (08:17→23:38)
[2023-01-20] MEDS: SIMETHICONE 40 MG/0.6 ML DROPS 2,000 MG/30 ML BOTTLE PO SCH ×4 (08:17→20:25)
[2023-01-20 08:41] LABS: Basophils # (A) 0.09 X 10*3/uL (0.00-0.10); Basophils % (A) 0.5 %; Eosinophils % (A) 2.9 %; HCT 34.4 % (39.6-50.0); Lymphocytes # (A) 1.58 X 10*3/uL (0.90-5.00); MCH 32.4 pg (27.0-32.0); MCHC 34.9 g/dL (32.0-37.0); Monocytes # (A) 1.12 X 10*3/uL (0.20-1.00); Monocytes % (A) 6.4 %; NRBC Per 100 WBC 0 X 10*3/uL (0.00-0.01); Neutrophils # (A) 14.13 X 10*3/uL (1.80-7.70); Neutrophils % (A) 80.5 %; Platelet Count 304 X 10*3/uL (140-440); RDW 12.8 % (11.5-14.5); WBC 17.54 X 10*3/uL (4.50-10.00)
[2023-01-20 08:51] LABS: Amylase 27 U/L (23-121); Chol/HDL Ratio 4.02 Ratio; LDL Cholesterol,Calculated 88.6 mg/dL (0.0-131.0)
[2023-01-20 09:15] LABS: ALT 127 U/L (10-49); AST 57 U/L (14-35); Albumin 3.4 g/dL (3.8-4.9); Albumin/Globulin Ratio 1.48 Ratio (1.60-3.17); Alkaline Phosphatase 222 U/L (41-126); BUN/Creat Ratio 11.75 Ratio (12.00-20.00); Blood Urea Nitrogen 9.4 mg/dL (9.0-27.0); Calcium 8.6 mg/dL (8.7-10.3); Carbon Dioxide 19.8 mmol/L (21.6-31.8); Chloride 101 mmol/L (96-109); Globulin 2.3 g/dL (1.6-3.3); Glucose 106 mg/dL (70-110); Lipase 33 U/L (14-60); Potassium 4.1 mmol/L (3.5-5.5); Sodium 135 mmol/L (135-145); Total Bilirubin 1.2 mg/dL (0.3-1.2); Total Protein 5.7 g/dL (6.2-8.2)
--- NOTE | 2023-01-20 10:10 | P.PN ---
Progress Note - Text Progress Note Date: 01/20/23 The patient feels better today. He has no joint pain. On exam vital signs appear stable. Abdomen soft incision sites are clean dry tach. Status post laparoscopically cholecystectomy. Patient is stable from a surgical standpoint for discharge.
--- NOTE | 2023-01-20 11:49 | PN ---
PROGRESS NOTE DATE OF SERVICE: 01/20/2023 SUBJECTIVE: This is a 77-year-old gentleman, who was admitted with acute cholelithiasis, also has elevated white count. The patient is on empiric antibiotics. No chest pain. No palpitation. Cultures are negative so far. OBJECTIVE: GENERAL: Pulse is 82, blood pressure 130/70, respirations 17. CHEST: Clear to auscultation. CARDIOVASCULAR: S1 and S2. ABDOMEN: Distended, status post surgery, nontender. LABORATORY DATA: Reviewed. ASSESSMENT AND PLAN: 1. Acute cholelithiasis with CBD stones and mild obstructive jaundice, possibly cholangitis, status post endoscopic retrograde cholangiopancreatography and laparoscopic cholecystectomy. 2. Mild acute pancreatitis possibly improved. 3. History of recent left total knee arthroplasty. 4. Hypertension. 5. Hyperlipidemia. 6. History of coronary artery disease. 7. Hyponatremia, mild. Recommend to continue current medications. Continue symptomatic treatment. Otherwise, repeat labs. The patient is on a regular diet. Stop the IV fluids, further recommendations to follow. MMODL / IJN: [id number] /
--- NOTE | 2023-01-20 12:18 | P.PN ---
Subjective Progress Note Date: 01/20/23 Principal diagnosis: Reason for follow-up is possible cholangitis and recent left knee replacement Patient is a 77-year-old male with a past medical his significant for hypertension hyperlipidemia coronary artery disease recently did have a left knee replacement presenting to the hospital for evaluation of right upper quadrant and epigastric abdominal pain patient did have evidence of obstructive jaundice and concerning for stone in the distal CBD. Patient is status post ERCP and did have a cholecystectomy completed on 01/18/2023 On today's evaluation that is 01/20/2023, the patient continues to be afebrile, the patient is breathing comfortably on room air and no need for supplemental oxygen, the patient denies chest pain shortness of breath or cough , patient denies nausea/vomiting , no abdominal pain and no diarrhea has been reported, denies pain to the left knee Patient white count is down to 17.54, creatinine is 0.8 Objective - Vital Signs Vital signs: Vital Signs Temp 97.5 F L 01/20/23 07:09 Pulse 82 01/20/23 07:09 Resp 17 01/20/23 07:09 BP 152/77 01/20/23 07:09 Pulse Ox 96 01/20/23 07:09 FiO2 Intake & Output 01/19/23 01/20/23 01/20/23 18:59 06:59 18:59 Output Total 650 500 Balance -650 -500 Output: Urine 650 500 Other: # Voids 1 - Exam GENERAL DESCRIPTION: An elderly male up in the room in no distress RESPIRATORY SYSTEM: Unlabored breathing , clear to auscultation anteriorly HEART: S1 S2 regular rate and rhythm , ABDOMEN: Soft , no tenderness EXTREMITIES: Left knee currently dressed no drainage - Labs CBC & Chem 7: 01/20/23 05:54 01/20/23 06:00 Labs: Abnormal Lab Results - Last 24 Hours (Table) 01/19/23 01/19/23 01/19/23 Range/Units 07:07 20:03 23:28 WBC (4.50-10.00) X 10*3/uL RBC (4.40-5.60) X 10*6/uL Hgb (13.0-17.0) g/dL Hct (39.6-50.0) % MCH (27.0-32.0) pg Neutrophils # (1.80-7.70) X 10*3/uL Monocytes # (0.20-1.00) X 10*3/uL Eosinophils # (0.04-0.35) X 10*3/uL Potassium 3.3 L 3.3 L (3.5-5.1) mmol/L Carbon Dioxide (21.6-31.8) mmol/L Anion Gap (4.00-12.00) mmol/L BUN/Creatinine Ratio (12.00-20.00) Ratio Calcium (8.7-10.3) mg/dL AST (14-35) U/L ALT (10-49) U/L Alkaline Phosphatase (41-126) U/L Total Protein (6.2-8.2) g/dL Albumin (3.8-4.9) g/dL Albumin/Globulin Ratio (1.60-3.17) Ratio HDL Cholesterol (40.00-60.00) mg/dL Amylase 111 H (30-110) U/L Lipase 401 H (23-300) U/L 01/20/23 01/20/23 Range/Units 05:54 06:00 WBC 17.54 H (4.50-10.00) X 10*3/uL RBC 3.70 L (4.40-5.60) X 10*6/uL Hgb 12.0 L (13.0-17.0) g/dL Hct 34.4 L (39.6-50.0) % MCH 32.4 H (27.0-32.0) pg Neutrophils # 14.13 H (1.80-7.70) X 10*3/uL Monocytes # 1.12 H (0.20-1.00) X 10*3/uL Eosinophils # 0.50 H (0.04-0.35) X 10*3/uL Potassium (3.5-5.1) mmol/L Carbon Dioxide 19.8 L (21.6-31.8) mmol/L Anion Gap 14.20 H (4.00-12.00) mmol/L BUN/Creatinine Ratio 11.75 L (12.00-20.00) Ratio Calcium 8.6 L (8.7-10.3) mg/dL AST 57 H (14-35) U/L ALT 127 H (10-49) U/L Alkaline Phosphatase 222 H (41-126) U/L Total Protein 5.7 L (6.2-8.2) g/dL Albumin 3.4 L (3.8-4.9) g/dL Albumin/Globulin Ratio 1.48 L (1.60-3.17) Ratio HDL Cholesterol 37.80 L (40.00-60.00) mg/dL Amylase (30-110) U/L Lipase (23-300) U/L Assessment and Plan (1) Choledocholithiasis Current Visit: Yes Status: Acute Code(s): K80.50 - CALCULUS OF BILE DUCT W/O CHOLANGITIS OR CHOLECYST W/O OBST SNOMED Code(s): 030278934 (2) Transaminitis Current Visit: Yes Status: Acute Code(s): R74.01 - ELEVATION OF LEVELS OF LIVER TRANSAMINASE LEVELS SNOMED Code(s): 426693307 Plan: 1patient presented to hospital with abdominal pain and has been diagnosed with a CBD stones and obstructive jaundice white count is mildly elevated with left shift and concern for possible cholangitis usually associated with gram-negative bacteremia, the patient is status post ERCP followed by laparoscopic cholecystectomy 2-patient did have clinical improvement the patient white count is trending down, to continue with doxycycline prophylaxis per his surgeon along with Zosyn and plan transition to oral antibiotics on discharge Dictation was produced using [employer] dictation software. please excuse any grammatical, word or spelling errors. Time with Patient: Less than 30
[2023-01-20] MEDS: TAMSULOSIN 0.4 MG CAP.ER.24H PO SCH (20:24)
[2023-01-20] MEDS: TEMAZEPAM 7.5 MG CAP PO PRN (20:31)
[2023-01-21 07:53] VITALS: BP 136/78; PULSE 70; RESP 17; TEMP 98.2
[2023-01-21] MEDS: HEPARIN SODIUM,PORCINE 5,000 UNIT/ML 1 ML VIAL SQ SCH (08:26)
[2023-01-21] MEDS: PANTOPRAZOLE 40 MG/10 ML VIAL IVP SCH (08:26)
[2023-01-21] MEDS: PIPERACILLIN-TAZOBACTAM 3.375 GM in SODIUM CHLORIDE 0.9% 100 ML IVPB SCH (08:26)
[2023-01-21] MEDS: amLODIPine 10 MG TAB PO SCH (08:27)
[2023-01-21] MEDS: hydrALAZINE HCL 50 MG TAB PO SCH (08:27)
[2023-01-21] MEDS: LOSARTAN 50 MG TAB PO SCH (08:27)
[2023-01-21] MEDS: FUROSEMIDE 20 MG TAB PO SCH (08:27)
[2023-01-21] MEDS: DOXYCYCLINE 50 MG CAP PO SCH (08:27)
[2023-01-21] MEDS: SIMETHICONE 40 MG/0.6 ML DROPS 2,000 MG/30 ML BOTTLE PO SCH (08:27)
[2023-01-21 11:03] LABS: Basophils % (A) 0.8 %; Eosinophils # (A) 0.79 X 10*3/uL (0.04-0.35); Eosinophils % (A) 6.4 %; HGB 11.3 g/dL (13.0-17.0); Lymphocytes # (A) 1.85 X 10*3/uL (0.90-5.00); Lymphocytes % (A) 14.9 %; MCH 32.1 pg (27.0-32.0); MCHC 34.2 g/dL (32.0-37.0); MCV 93.8 FL (80.0-97.0); Mean Platelet Volume 10.2 FL (9.5-12.2); Monocytes # (A) 0.88 X 10*3/uL (0.20-1.00); Monocytes % (A) 7.1 %; NRBC Per 100 WBC 0 X 10*3/uL (0.00-0.01); Neutrophils % (A) 70.2 %; Platelet Count 321 X 10*3/uL (140-440); RBC 3.52 X 10*6/uL (4.40-5.60); RDW 12.8 % (11.5-14.5)
[2023-01-21 11:18] LABS: ALT 101 U/L (10-49); AST 39 U/L (14-35); Albumin 3.2 g/dL (3.8-4.9); Albumin/Globulin Ratio 1.52 Ratio (1.60-3.17); Alkaline Phosphatase 184 U/L (41-126); BUN/Creat Ratio 11.14 Ratio (12.00-20.00); Blood Urea Nitrogen 7.8 mg/dL (9.0-27.0); Calcium 8.4 mg/dL (8.7-10.3); Carbon Dioxide 23.5 mmol/L (21.6-31.8); Chloride 102 mmol/L (96-109); Globulin 2.1 g/dL (1.6-3.3); Glucose 122 mg/dL (70-110); Potassium 3.3 mmol/L (3.5-5.5); Sodium 136 mmol/L (135-145); Total Bilirubin 0.8 mg/dL (0.3-1.2); Total Protein 5.3 g/dL (6.2-8.2)
--- NOTE | 2023-01-21 12:29 | P.PN ---
Subjective Progress Note Date: 01/21/23 Principal diagnosis: Reason for follow-up is possible cholangitis and recent left knee replacement Patient is a 77-year-old male with a past medical his significant for hypertension hyperlipidemia coronary artery disease recently did have a left knee replacement presenting to the hospital for evaluation of right upper quadrant and epigastric abdominal pain patient did have evidence of obstructive jaundice and concerning for stone in the distal CBD. Patient is status post ERCP and did have a cholecystectomy completed on 01/18/2023 On today's evaluation that is 01/21/2023, the patient remains to be afebrile, the patient is breathing comfortably on room air and denies any shortness of breath, the patient denies chest pain or cough , patient denies abdominal p ain, no nausea/vomiting and no diarrhea, the patient denies pain to the left knee Patient white count is down to 12.40, creatinine is 0.7 Objective - Vital Signs Vital signs: Vital Signs Temp 98.2 F 01/21/23 07:05 Pulse 70 01/21/23 08:00 Resp 17 01/21/23 08:00 BP 136/78 01/21/23 07:05 Pulse Ox 96 01/21/23 07:05 FiO2 Intake & Output 01/20/23 01/21/23 01/21/23 18:59 06:59 18:59 Intake Total 900 Output Total 300 Balance 600 Intake: IV 900 Sodium Chloride 0.9% 1, 900 000 ml @ 75 mls/hr IV . [id number] [facility] Rx#:[id number] Output: Urine 300 Other: Voiding Method Urinal Urinal # Voids 8 # Bowel Movements 1 - Exam GENERAL DESCRIPTION: An elderly male up in the room in no distress RESPIRATORY SYSTEM: Unlabored breathing , clear to auscultation anteriorly HEART: S1 S2 regular rate and rhythm , ABDOMEN: Soft , no tenderness EXTREMITIES: Left knee currently dressed no drainage - Labs CBC & Chem 7: 01/21/23 06:37 01/21/23 06:37 Labs: Abnormal Lab Results - Last 24 Hours (Table) 01/21/23 01/21/23 Range/Units 06:37 06:37 WBC 12.40 H (4.50-10.00) X 10*3/uL RBC 3.52 L (4.40-5.60) X 10*6/uL Hgb 11.3 L (13.0-17.0) g/dL Hct 33.0 L (39.6-50.0) % MCH 32.1 H (27.0-32.0) pg Neutrophils # 8.70 H (1.80-7.70) X 10*3/uL Eosinophils # 0.79 H (0.04-0.35) X 10*3/uL Potassium 3.3 L (3.5-5.5) mmol/L BUN 7.8 L (9.0-27.0) mg/dL BUN/Creatinine Ratio 11.14 L (12.00-20.00) Ratio Glucose 122 H (70-110) mg/dL Calcium 8.4 L (8.7-10.3) mg/dL AST 39 H (14-35) U/L ALT 101 H (10-49) U/L Alkaline Phosphatase 184 H (41-126) U/L Total Protein 5.3 L (6.2-8.2) g/dL Albumin 3.2 L (3.8-4.9) g/dL Albumin/Globulin Ratio 1.52 L (1.60-3.17) Ratio Assessment and Plan (1) Choledocholithiasis Current Visit: Yes Status: Acute Code(s): K80.50 - CALCULUS OF BILE DUCT W/O CHOLANGITIS OR CHOLECYST W/O OBST SNOMED Code(s): 718063720 (2) Transaminitis Current Visit: Yes Status: Acute Code(s): R74.01 - ELEVATION OF LEVELS OF LIVER TRANSAMINASE LEVELS SNOMED Code(s): 267681664 Plan: 1patient presented to hospital with abdominal pain and has been diagnosed with a CBD stones and obstructive jaundice white count is mildly elevated with left shift and concern for possible cholangitis usually associated with gram-negative bacteremia, the patient is status post ERCP followed by laparoscopic cholecystectomy 2-patient has shown clinical improvement the patient white count is trending down, patient to continue with doxycycline prophylaxis per his surgeon and a short course of oral Augmentin on discharge this was discussed with the DIRECTOR OF SAFETY for admitting team Dictation was produced using [employer] ? dictation software. please excuse any grammatical, word or spelling errors. Time with Patient: Less than 30
[2023-01-21] MEDS ORDERED: POTASSIUM CHLORIDE ER 20 MEQ TAB.ER PO STA (13:00)
--- NOTE | 2023-01-21 13:02 | P.PN ---
Subjective Progress Note Date: 01/21/23 CHIEF COMPLAINT: Choledocholithiasis HISTORY OF PRESENT ILLNESS: Patient is postop day #3 status post laparoscopic cholecystectomy. Patient denies any abdominal pain. He has had a bowel movement. Denies any nausea or vomiting. Afebrile. WBC 17 down to 12.4 Hgb 11.3 platelets 321 total bilirubin 0.8 AST 39 ALT 101 alk phos 184. LFTs trending down k 3.3 PHYSICAL EXAM: VITAL SIGNS: Reviewed. GENERAL: Well-developed in no acute distress. ABDOMEN: Soft. Nondistended. Nontender. Incision sites clean dry and intact NEUROLOGIC: Alert and oriented. Cranial nerves II through XII grossly intact. ASSESSMENT: 1. Cholelithiasis and cholecystitis status post A scopic cholecystectomy 2. Choledocholithiasis status post ERCP with removal of 2 stones PLAN: -Patient can be discharged from surgical standpoint when medically cleared -Discharge antibiotics per infectious disease Physician Radio News Writer note has been reviewed by physician. Signing provider agrees with the documented findings, assessment, and plan of care. Objective - Vital Signs Vital signs: Vital Signs Temp 98.2 F 01/21/23 07:05 Pulse 70 01/21/23 08:00 Resp 17 01/21/23 08:00 BP 136/78 01/21/23 07:05 Pulse Ox 96 01/21/23 07:05 FiO2 Intake & Output 01/20/23 01/21/23 01/21/23 18:59 06:59 18:59 Intake Total 900 Output Total 300 Balance 600 Intake: IV 900 Sodium Chloride 0.9% 1, 900 000 ml @ 75 mls/hr IV . [id number] [facility] Rx#:[id number] Output: Urine 300 Other: Voiding Method Urinal Urinal # Voids 8 # Bowel Movements 1 - Labs CBC & Chem 7: 01/21/23 06:37 01/21/23 06:37 Labs: Abnormal Lab Results - Last 24 Hours (Table) 01/21/23 01/21/23 Range/Units 06:37 06:37 WBC 12.40 H (4.50-10.00) X 10*3/uL RBC 3.52 L (4.40-5.60) X 10*6/uL Hgb 11.3 L (13.0-17.0) g/dL Hct 33.0 L (39.6-50.0) % MCH 32.1 H (27.0-32.0) pg Neutrophils # 8.70 H (1.80-7.70) X 10*3/uL Eosinophils # 0.79 H (0.04-0.35) X 10*3/uL Potassium 3.3 L (3.5-5.5) mmol/L BUN 7.8 L (9.0-27.0) mg/dL BUN/Creatinine Ratio 11.14 L (12.00-20.00) Ratio Glucose 122 H (70-110) mg/dL Calcium 8.4 L (8.7-10.3) mg/dL AST 39 H (14-35) U/L ALT 101 H (10-49) U/L Alkaline Phosphatase 184 H (41-126) U/L Total Protein 5.3 L (6.2-8.2) g/dL Albumin 3.2 L (3.8-4.9) g/dL Albumin/Globulin Ratio 1.52 L (1.60-3.17) Ratio
== END 2023-01-21 13:20 | disposition home or self-care (01) | DRG 417 ==
LOC: EC 23:41 → 4SSUR 01-16 05:37
PROVIDERS: ADMIT Hospitalist; ATTEND Hospitalist
PROC: 0FC98ZZ Extirpation of Matter from Common Bile Duct, Via Natural or Artificial Opening Endoscopic (ICD-10-PCS; 2023-01-18)
PROC: BF101ZZ Fluoroscopy of Bile Ducts using Low Osmolar Contrast (ICD-10-PCS; 2023-01-18)
PROC: 0FT44ZZ Resection of Gallbladder, Percutaneous Endoscopic Approach (ICD-10-PCS; principal; 2023-01-18 10:45)
DX: K80.67 Calculus of gallbladder and bile duct with acute and chronic cholecystitis with obstruction (principal); K85.90 Acute pancreatitis without necrosis or infection, unspecified; E87.1 Hypo-osmolality and hyponatremia; E78.5 Hyperlipidemia, unspecified; I25.10 Atherosclerotic heart disease of native coronary artery without angina pectoris; Z20.822 Contact with and (suspected) exposure to COVID-19; I10 Essential (primary) hypertension; Z96.652 Presence of left artificial knee joint; Z79.899 Other long term (current) drug therapy
CPT/HCPCS: 36415; 43262; 43277; 71045; 71046; 74177; 74330; 80053; 80061; 80143; 82150; 83605; 83690; 83735; 84132; 84484; 85025; 85610; 85730; 87040; 87636; 88304; 93005; 96361; 96374; 96375; 99285